=== PATIENT | female | born 1960 | race Caucasian/White ===

== ENCOUNTER 2017-02-11 00:51 | Inpatient (IN) | payer MEDICARE, MEDICAID ==
--- NOTE | 2017-02-11 01:51 | ED Physician Chart ---
Chief Complaint/HPI - Patient Information Date Seen:: 02/11/17 Time Seen:: 01:30 Chief Complaint:: Fever for one day. History of Present Illness:: Brought in by ambulance from nursing facility for the above reason. Pt states that she has had intermittent localized sharp mid lower abdominal pain for one day. Pain can be worsened with eating. No N/V/D. Last BM yesterday that was normal in color/consistency. No hematochezia or melena. Pt denies any sorethroat , nasal congestion or cough. No vaginal bleeding or discharge. No dysuria, urgency, or frequency with urination. No vaginal bleeding or discharge. H & P are limited because pt has h/o mental disability and is not fully cooperative. Allergies:: Allergies Allergy/AdvReac Type Severity Reaction Status Date / Time No Known Allergies Allergy Verified 05/31/16 14:51 Vitals:: Vital Signs - 8 hr 02/11/17 01:00 Temp 98.8 F HR 110 RR 20 BP 120/58 O2 Sat % 98 Historian:: Patient, Medical Records (from transferring facility.) Family MD/PCP:: Dr. Alvarez LMP:: Postmenopausal. Review:: Nurse's Note Reviewed, Transfer documents Reviewed Review of Systems - Review of Systems General/Constitutional: Fever, No chills, No weight loss, Weakness (chronic lower extremity weakness. Pt has been wheelchair bound), No diaphoresis, No edema, No loss of appetite Skin: No skin lesions, No rash, No bruising Head: No headache, No light-headedness Eyes: No loss of vision, No pain, No diplopia ENT: No earache, No nasal drainage, No sore throat, No tinnitus Neck: No neck pain, No swelling, No thyromegaly, No stiffness, No mass noted Cardio Vascular: No chest pain, No palpitations, No edema Pulmonary: No SOB, No cough, No wheezing GI: No nausea, No vomiting, No diarrhea, Pain G/U: No dysuria, No frequency, No hematuria Hammer Setter: No vaginal discharge, No abnormal vaginal bleed Musculoskeletal: No bone or joint pain, No back pain, No muscle pain Endocrine: No polyuria, No polydipsia Psychiatric: Prior psych history, No depression, No anxiety, No suicidal ideation, No homicidal ideation, No auditory hallucination, No visual hallucination Hematopoietic: No bruising, No lymphadenopathy Allergic/Immuno: No urticaria, No angioedema Neurological: No syncope, No focal symptoms, No weakness, No paresthesia, No headache, No seizure, No dizziness, No confusion, No vertigo Past Medical History - Past Medical History Past Medical History: HTN, DM, Dyslipidemia, Dementia, Other (Chronic anemia) Social History: Non Smoker, No Alcohol, No Drug Use, Single, Care Facility Employment:: on disability. Surgical History: Cholecystectomy Psychiatricy History: Dementia Medication: Reviewed Family Medical History - Family Member Mother History Unknown: Yes Physical Exam - Physical Examination General/Constitutional: Awake, Well-developed, well-nourished, Alert, No distress Other Gen/Cons comments:: Breathes comfortably, speaks clearly, and interacts appropriately. Pt is alert and is able to answer most questions I ask. Head: Atraumatic Eyes: Lids, conjuctiva normal, PERRL, EOMI Skin: Nl inspection, No rash, No skin lesions, No ecchymosis, No lymphadenopathy ENMT: External ears, nose nl, TM canals nl, Nasal exam nl, Oropharynx nl Other ENMT comments:: Mucous membrane is slightly dry. Neck: Nontender, Full ROM w/o pain, No JVD, No nuchal rigidity, No mass, No stridor Respiratory: Nl effort/Exclusion, Clear to Auscultation, No Wheeze/Rhonchi/Rales Other Cardio Vascular comments:: Regular rhythm with mild tachycardia. VR 110 GI: No organomegaly, No hernia, Normal BS's, No mass/bruits, No McBurney tenderness Other GI comments:: Abdomen is obese but soft. Tenderness at mid lower region. No R/G. A well healed diagonal surgical scar noticed in RUQ. Rectal exam: deferred per pt's request. : No CVA tenderness Other comments:: Pelvic exam: deferred per pt's request. Extremities: No tenderness or effusion, No edema Other Extremities comments:: contactures noticed in all 4 extremities, especially in LUE. Neuro/Psych: Alert/oriented (oriented x 3), Mood normal Other Neuro/Psych comments:: Spontaneous movements noticed in all 4 extremities. Pt has contractures noticed in all 4 extremites. Pt does not fully cooperate for full neurological exam. Labs/Radiology/EKG Results - Lab Results Results: Laboratory Tests 08/21/17 08/21/17 08/21/17 01:40 01:40 01:40 WBC 12.2 H D RBC 3.99 Hgb 11.2 L Hct 33.1 L D MCV 82.9 MCH 28.0 MCHC Differential 33.7 RDW 13.8 Plt Count 288 D MPV 8.2 Neutrophils % 77.1 Lymphocytes % 13.0 L Monocytes % 8.6 Eosinophils % 0.7 Basophils % 0.6 PT 10.4 INR 1.00 PTT (Actin FS) 24.2 L Sodium 133 L Potassium 4.2 Chloride 99 Carbon Dioxide 25.5 Anion Gap 12.7 BUN 23 Creatinine 0.7 Est GFR ( Amer) > 60.0 Est GFR (Non-Af Amer) > 60.0 BUN/Creatinine Ratio 32.9 Glucose 134 H Whole Bld Lactic Acid Calcium 10.5 H Total Bilirubin 0.4 AST 27 ALT 21 Alkaline Phosphatase 65 Creatine Kinase 43 Troponin I Total Protein 7.4 Albumin 4.0 Globulin 3.4 Albumin/Globulin Ratio 1.2 Amylase 40 Lipase 63 Urine Source Urine Color Urine Clarity Urine pH Ur Specific [place] Urine Protein Urine Glucose (UA) Urine Ketones Urine Blood Urine Nitrate Urine Bilirubin Urine Urobilinogen Ur Leukocyte Esterase Urine RBC Urine WBC Ur Epithelial Cells Urine Bacteria Valproic Acid 02/11/17 02/11/17 02/11/17 01:40 01:40 02:00 WBC RBC Hgb Hct MCV MCH MCHC Differential RDW Plt Count MPV Neutrophils % Lymphocytes % Monocytes % Eosinophils % Basophils % PT INR PTT (Actin FS) Sodium Potassium Chloride Carbon Dioxide Anion Gap BUN Creatinine Est GFR ( Amer) Est GFR (Non-Af Amer) BUN/Creatinine Ratio Glucose Whole Bld Lactic Acid 1.56 Calcium Total Bilirubin AST ALT Alkaline Phosphatase Creatine Kinase Troponin I < 0.01 L Total Protein Albumin Globulin Albumin/Globulin Ratio Amylase Lipase Urine Source Urine Color Urine Clarity Urine pH Ur Specific [place] Urine Protein Urine Glucose (UA) Urine Ketones Urine Blood Urine Nitrate Urine Bilirubin Urine Urobilinogen Ur Leukocyte Esterase Urine RBC Urine WBC Ur Epithelial Cells Urine Bacteria Valproic Acid 60.2 02/11/17 02:10 WBC RBC Hgb Hct MCV MCH MCHC Differential RDW Plt Count MPV Neutrophils % Lymphocytes % Monocytes % Eosinophils % Basophils % PT INR PTT (Actin FS) Sodium Potassium Chloride Carbon Dioxide Anion Gap BUN Creatinine Est GFR ( Amer) Est GFR (Non-Af Amer) BUN/Creatinine Ratio Glucose Whole Bld Lactic Acid Calcium Total Bilirubin AST ALT Alkaline Phosphatase Creatine Kinase Troponin I Total Protein Albumin Globulin Albumin/Globulin Ratio Amylase Lipase Urine Source CATH Urine Color YELLOW Urine Clarity CLOUDY H Urine pH 5.5 Ur Specific [place] 1.010 Urine Protein NEGATIVE Urine Glucose (UA) NEGATIVE Urine Ketones NEGATIVE Urine Blood SMALL H Urine Nitrate POSITIVE H Urine Bilirubin NEGATIVE Urine Urobilinogen 0.2 Ur Leukocyte Esterase LARGE H Urine RBC 2-5 Urine WBC 50-100 H Ur Epithelial Cells MODERATE Urine Bacteria MODERATE Valproic Acid - Radiology Results Results: PCXR: Based on my interpratation, cardiomegaly; otherwise, NAD. Official report is pending. CT of abdomen and pelvis without contrast: Prominent common bile duct, unchanged likely related to prior cholecystectomy. Nonspecific perinenphric soft tisssue stranding. No renal or ureteral calcification. No hydronephrosis. No bladder calcification. No free fluid. No free air. Motion artifact limiting evaluation. No CT evidence for appendicitis. Unremarkable bowel gas pattern. Moderate retained stool. Small left inguinal hernia containing fat. Mild dependent atelectasis. Official report per Dr. Luda Mendes, radiologist. - EKG Interpretations EKG Time:: 01:50 Rate & Rhythm: Sinus tachycardia with VR 111 Comments:: No acute ischemic changes. ED Septic Shock - . Is Septic Shock (SBP<90, OR Lactate>4 mmol\L) present?: No - <6hrs of presentation: Vital Signs: Vital Signs - 8 hr 02/11/17 01:00 Temp 98.8 F HR 110 RR 20 BP 120/58 O2 Sat % 98 Reassessment (Disposition) - Reassessment Reassessment:: 0440 Pt has been repeatedly evaluated. Pt has been pain free and has been resting comfortably. Remaining lab results and CT report just became available. EKG, lab and radiological findings have been reviewed with pt. Management plan has been discussed. Dr. Patel is to be contacted. 0604 Pt remains pain free and stable. Case was discussed with Dr. Patel with pertinent H & P, EKG, lab, and radiological findings reviewed. He concurred with present management. Pt is to be admitted to [facility] under his care. Reassessment Condition:: Improved - Diagnosis Diagnosis:: Febrile illness due to acute cystitis/urinary tract infection. Stable and improved. Transient abdominal pain of unknown etiology, resolved and currently asymptomatic. Mild dehydration. Diabetes mellitus, stable. HTN, stable. - Patient Disposition Admitted to:: Med/Surg Admitting Medical Physician:: Jerome Patel Time:: 06:05 Condition at Disposition:: Stable, Improved
[2017-02-11 01:55] LABS: % BASOPHILS 0.6 % (0.0-2.0); % EOSINOPHILS 0.7 % (0.0-5.0); % MONOCYTES 8.6 % (2.0-10.0); % NEUTROPHILS 77.1 % (40.0-80.0); HEMOGLOBIN 11.2 gm/dL (11.7-15.5); MEAN CELL VOLUME 82.9 fl (81-100); MEAN CORPUSCULAR HGB CONC 33.7 pg (28.0-36.0); MEAN PLATELET VOLUME 8.2 fl; NEUTROPHILE ABSOLUTE 9.4 Th/cmm (1.8-8.0); RED BLOOD COUNT 3.99 Mil/cmm (3.80-5.10); RED CELL DISTRIBUTION WIDTH 13.8 % (11.5-20.0)
[2017-02-11 02:00] LABS: WHITE BLOOD COUNT 12.2 Th/cmm (4.8-10.8)
[2017-02-11 02:01] LABS: HEMATOCRIT 33.1 % (35.0-45.0); PLATELET COUNT 288 Th/cmm (150-400)
[2017-02-11 02:04] LABS: PROTHROMBIN TIME (TEST) 10.4 SECONDS (9.5-11.5)
[2017-02-11 02:05] LABS: ALB/GLOB RATIO 1.2 (1.0-1.8); ALKALINE PHOSPHATASE 65 U/L (34-104); AMYLASE SERUM 40 U/L (29-103); ANION GAP 12.7 (7.0-16.0); BILIRUBIN,TOTAL 0.4 mg/dL (0.3-1.0); BUN - UREA NITROGEN 23 mg/dL (7-25); BUN/CREATININE RATIO 32.9; CALCIUM SERUM 10.5 mg/dL (8.6-10.3); CARBON DIOXIDE 25.5 mEq/L (21.0-31.0); CHLORIDE 99 mEq/L (98-107); CREATININE - SERUM 0.7 mg/dL (0.6-1.2); GLUCOSE 134 mg/dL (70-105); LIPASE 63 U/L (11-82); POTASSIUM SERUM 4.2 mEq/L (3.5-5.1); SGOT 27 U/L (13-39); SGPT/ALT 21 U/L (7-52); SODIUM SERUM 133 mEq/L (136-145)
[2017-02-11 02:15] LABS: URINE BILIRUBIN NEGATIVE (NEGATIVE); URINE BLOOD SMALL (NEGATIVE); URINE GLUCOSE (UA) NEGATIVE (NEGATIVE); URINE KETONE NEGATIVE (NEGATIVE); URINE PH 5.5 (4.6 - 8.0); URINE PROTEIN NEGATIVE (NEGATIVE); URINE UROBILINOGEN 0.2 E.U./dL (0.2 - 1.0)
[2017-02-11] MEDS ORDERED: Sodium Chloride 0.9% 1,000 ML IV ONE (02:15)
[2017-02-11 02:23] LABS: URINE COLOR YELLOW
[2017-02-11 02:24] LABS: URINE BACTERIA MODERATE /hpf (NONE SEEN); URINE EPITHELIAL CELLS MODERATE /lpf (FEW); URINE WBC 50-100 /hpf (0-5)
[2017-02-11] MEDS ORDERED: Levofloxacin 500mg/100mL 500 MG/100 ML BAG IV ONE ×2 (04:46→04:54)
[2017-02-11] MEDS ORDERED: Fleet Enema 135 mL RC PRN (06:18)
[2017-02-11] MEDS ORDERED: GLUCAGON HCl 1 MG KIT IM PRN (06:18)
[2017-02-11] MEDS ORDERED: Magnesium Hydroxide (MOM) 30 mL UDC PO PRN (06:18)
--- NOTE | 2017-02-11 08:11 | Diagnostic Imaging Report ---
CT scan abdomen and pelvis without intravenous contrast HISTORY: Pain Total DLP equals 611 CTDI equals 11.8 Axial sections were obtained from the xiphoid process down to the pubic symphysis. The liver exhibits a normal size and contour. No focal lesions. The spleen appears normal. No abnormality seen in the region of the pancreas. Surgical clips are seen in the zi hepatis region consistent with prior cholecystectomy. The adrenal glands appear normal. No significant focal renal lesions. No hydronephrosis. The exam of the pelvis demonstrates preservation of normal fat planes. No abnormal soft tissue masses or abnormal fluid collections. There is a small fat-containing left inguinal hernia. IMPRESSION: 1. Somewhat limited exam due to patient motion artifact 2. No definite acute abnormalities 3. Small fat-containing left inguinal hernia 4. Findings of a prior cholecystectomy
--- NOTE | 2017-02-11 08:14 | Diagnostic Imaging Report ---
Portable chest x-ray History: Fever Allowing for portable technique the heart size is normal. No focal pulmonary parenchymal processes. No hilar or mediastinal abnormalities. Small calcific density noted in the soft tissues adjacent to the lateral aspect of the right humeral head consistent with calcific tendinitis. Impression: 1. No acute abnormalities 2. Small calcification within the soft tissues adjacent to the lateral aspect of the right humeral head consistent with calcific tendinitis.
[2017-02-11] MEDS: Multivitamin w/ Minerals Tab PO SCH (09:16)
[2017-02-11] MEDS: Ferrous Sulfate 325 MG TAB PO SCH ×2 (09:16→17:20)
[2017-02-11] MEDS: Aspirin 81mg Chewable Tab PO SCH (09:19)
[2017-02-11] MEDS: Sodium Chloride 0.9% 1,000 ML IV SCH (10:50)
[2017-02-11] MEDS: Ciprofloxacin 200mg Premix PB 200 MG/100 ML BAG IV SCH ×2 (10:53→21:11)
--- NOTE | 2017-02-11 10:58 | History & Physical ---
ADMIT DATE: 02/11/2017 CHIEF COMPLAINT: Fevers x 1 day and suprapubic abdominal pain. HISTORY OF PRESENT ILLNESS: This is a 56-year-old lady who was transferred from [facility] for the above-mentioned complaint. The patient has a history of mild mental retardation, quadriplegia, essential hypertension, type 2 diabetes, who was brought into the ER, given fevers and also abdominal pain, which was mostly localized on the suprapubic area. The patient denies any diarrhea, any nausea, vomiting, but she does complain of some burning upon urination. Upon admission, pertinent findings include a white count of 12.2, sodium of 133, and UA consistent with a UTI. The patient has been admitted to the medical floor for management and care. PAST MEDICAL HISTORY: As noted above. Dementia, dyslipidemia, chronic anemia. PAST SURGICAL HISTORY: Status post cholecystectomy. FAMILY HISTORY: Likely noncontributory. SOCIAL HISTORY: No tobacco, ETOH or illicit drug usage. Lives at the [facility]. ALLERGIES: NKDA. OUTPATIENT MEDICATIONS: Acetaminophen 650 q. 4 p.r.n. for pain or fever, aspirin 81 every day, benazepril 10 every day, Dulcolax 10 q. 96 hours p.r.n. for moderate constipation, vitamin D3 1000 units at bedtime, Depakote ER 500 mg q.12, docusate sodium 200 mg every day, iron sulfate 325 b.i.d., Fleet enema q. 96 hours p.r.n. for severe constipation, gabapentin 100 mg at bedtime, Lopid 600 mg b.i.d., glipizide 5 mg every day, glucagon p.r.n., ibuprofen 400 mg at bedtime, insulin sliding scale, milk of magnesia p.r.n., q. 72 hours, Glucophage 1000 mg b.i.d., Cytotec 100 mcg every day, multivitamins every day, olanzapine 7.5 q.p.m., Dyazide 37.5/25 every day. REVIEW OF SYSTEMS: A good review of systems was not able to be done given patient's condition, but she was able tell me that she has had fevers for about a day or so. CARDIAC: No chest pain. LUNGS: She denies any cough, any phlegm production, any shortness of breath. GASTROINTESTINAL: Please refer to HPI. She denies any nausea or vomiting, any diarrhea, any constipation, as noted above suprapubic abdominal pain. GENITOURINARY: Dysuria. Denies any hematuria. NEUROLOGIC: No changes in vision. No headaches. PHYSICAL EXAMINATION: VITAL SIGNS: Temperature 97.8, pulse 112, respirations 20, blood pressure 131/72, satting 95% on room air. GENERAL: Well nourished, mildly developed, mentally delayed female. She is awake and able to answer simple questions. CARDIOVASCULAR: Regular rate and rhythm without any murmurs. LUNGS: Clear to auscultation. Decreased at the bases. ABDOMEN: Somewhat distended. There is some tenderness to palpation on the periumbilical area and suprapubic area with no rebound or peritoneal signs, no organomegaly noted. There is normoactive bowel sounds. EXTREMITIES: Lower extremities: There is no pedal edema. LABORATORY DATA: White count 12.2, H and H 11/33, sodium 133. Otherwise chemistry was within normal limits. Glucose 134, lactic acid 1.56, calcium 10.5. LFTs were within normal limits. UA shows small blood, positive for nitrites, large leukocyte esterase with large.WBC: 50-100 DIAGNOSTICS: CT ABD/PELVIS: PROMINENT BILE DUCT-PRIOR JOY, SMALL LEFT INGUINAL HERNIA, MILD DEPENDENT ATELECTASIS. CXR: NO ACUTE ABNORMALITIES ASSESMENT: 1) FEVERS R/O SEPSIS-FOLLOW C/S 2) UTI-FOLLOW UC/S 3) LEUKOCYTOSIS-MONITOR 4) HX OF MR/CP/QUADRIPLEGIA 5) HX OF HTN 6) HX OF DM-2 7) HX OF DEMENTIA PLAN: ADMIT TPO MS FOR SUPPORTIVE CARE AND MGT PT HAS BEEN PLACED ON IV ABXS, IVF. FOLLOW PANCULTURES WILL KEEP PT ON HER OTHER MEDS SCHEDULED FOLLOW LABS [facility]# [id number] [facility]
[2017-02-11] MEDS: INSULIN ASPART SLIDING SCALE 100 UNITS/ML UNIT SUBQ SCH ×4 (12:03→21:19)
[2017-02-12] MEDS: Sodium Chloride 0.9% 1,000 ML IV SCH ×2 (02:35→17:40)
[2017-02-12 06:31] LABS: HEMATOCRIT 30.3 % (35.0-45.0); MEAN CELL VOLUME 83.2 fl (81-100); MEAN CORPUSCULAR HEMOGLOBIN 27.4 pg (27.0-31.0); MEAN PLATELET VOLUME 7.4 fl; PLATELET COUNT 260 Th/cmm (150-400); RED BLOOD COUNT 3.65 Mil/cmm (3.80-5.10); RED CELL DISTRIBUTION WIDTH 13.6 % (11.5-20.0)
[2017-02-12 06:33] LABS: WHITE BLOOD COUNT 6.4 Th/cmm (4.8-10.8)
[2017-02-12 06:54] LABS: ANION GAP 11.1 (7.0-16.0); BUN - UREA NITROGEN 14 mg/dL (7-25); CARBON DIOXIDE 25.8 mEq/L (21.0-31.0); CHLORIDE 104 mEq/L (98-107); CREATININE - SERUM 0.5 mg/dL (0.6-1.2); GLUCOSE 119 mg/dL (70-105); MAGNESIUM 1.8 mg/dL (1.9-2.7); POTASSIUM SERUM 3.9 mEq/L (3.5-5.1); SODIUM SERUM 137 mEq/L (136-145)
[2017-02-12] MEDS: INSULIN ASPART SLIDING SCALE 100 UNITS/ML UNIT SUBQ SCH ×3 (07:13→17:39)
[2017-02-12 07:30] LABS: BAND NEUTROPHILE 1 % (0-10); EOSINOPHIL 1 % (0-5); NEUTROPHILS 58 % (40-80); PLATELET ESTIMATE ADEQUATE (NORMAL); PLATELET MORPHOLOGY NORMAL (NORMAL); TOTAL CELLS COUNTED 100
[2017-02-12] MEDS: Multivitamin w/ Minerals Tab PO SCH (08:58)
[2017-02-12] MEDS: Ferrous Sulfate 325 MG TAB PO SCH ×2 (08:59→16:49)
[2017-02-12] MEDS: Aspirin 81mg Chewable Tab PO SCH (08:59)
[2017-02-12] MEDS: Ciprofloxacin 200mg Premix PB 200 MG/100 ML BAG IV SCH ×2 (09:00→22:02)
--- NOTE | 2017-02-12 21:05 | Admit Criteria Form ---
Admit Criteria Forms - Admit Criteria Diagnosis: URINARY COMPLICATIONS Clinical Indications for Inpatient Care (Place 'X' for any and all applicable criteria): Ongoing inpatient care may be indicated for urinary complications with ANY ONE of the following: [X ]I. Urinary tract infection requiring inpatient care as indicated by ANY ONE of the following(8)(19)(20): [ ]a) Severe symptoms (eg, high fever, severe pain) [ ]b) Vomiting or dehydration requiring ongoing inpatient care [X ]c) IV antibiotic needs that cannot be managed at lower level of care [ ]d) Hemodynamic instability [ ]e) Obstruction of collecting system by stone or tumor [ ]II. Urinary retention requiring drainage or surgery (3)(4)(5)(17)(18) [ ]III. Renal failure (Use Renal Failure Criteria for further information.) [ ]IV. Oliguria(30) [ ]V. Post obstructive diuresis requiring close monitoring of urine output and intravenous compensation for excessive fluid losses(33) Extended stay beyond goal length of stay for primary condition may be needed until ALL of the following are present(3)(4)(5)(8): [ ]a) Renal function (creatinine) at baseline, or daily decreases in creatinine consistent with renal function return [ ]b) Voiding adequately or with urinary catheter or percutaneous suprapubic tube and management regimen in place that is performable at lower level of care. [ ]c) Urine output adequate [ ]d) Fever absent or resolving [ ]e) Infection absent or treatable at next level of care The original [employer] content created by [employer] has been revised. The portions of the content which have been revised are identified through the use of italic text or in bold, and [facility] has neither reviewed nor approved the modified material. All other unmodified content is copyright [employer] [employer] Please see references footnoted in the original [facility] [employer] edition 2016 Admit Criteria Met?: Yes
[2017-02-13] MEDS: INSULIN ASPART SLIDING SCALE 100 UNITS/ML UNIT SUBQ SCH ×3 (02:41→12:09)
[2017-02-13] MEDS: Aspirin 81mg Chewable Tab PO SCH (09:02)
[2017-02-13] MEDS: Ferrous Sulfate 325 MG TAB PO SCH (09:03)
[2017-02-13] MEDS: Multivitamin w/ Minerals Tab PO SCH (09:04)
[2017-02-13] MEDS: Ciprofloxacin 200mg Premix PB 200 MG/100 ML BAG IV SCH (09:08)
[2017-02-13] MEDS ORDERED: Hydrocodone/APAP 5mg/325mg Tab PO ONE (09:47)
[2017-02-13 09:51] LABS: % BASOPHILS 0.2 % (0.0-2.0); % EOSINOPHILS 3.4 % (0.0-5.0); % LYMPHOCYTES 30.9 % (20.0-50.0); % MONOCYTES 11.2 % (2.0-10.0); % NEUTROPHILS 54.3 % (40.0-80.0); HEMATOCRIT 32.4 % (35.0-45.0); HEMOGLOBIN 10.7 gm/dL (11.7-15.5); MEAN CELL VOLUME 82.9 fl (81-100); MEAN CORPUSCULAR HEMOGLOBIN 27.4 pg (27.0-31.0); MEAN PLATELET VOLUME 7.7 fl; NEUTROPHILE ABSOLUTE 3.5 Th/cmm (1.8-8.0); PLATELET COUNT 280 Th/cmm (150-400); RED CELL DISTRIBUTION WIDTH 13.5 % (11.5-20.0); WHITE BLOOD COUNT 6.3 Th/cmm (4.8-10.8)
[2017-02-13] MEDS ORDERED: Fleet Enema 135 mL RC ONE (10:00)
[2017-02-13 10:32] LABS: ANION GAP 13.4 (7.0-16.0); BUN - UREA NITROGEN 19 mg/dL (7-25); BUN/CREATININE RATIO 31.7; CALCIUM SERUM 10.5 mg/dL (8.6-10.3); CARBON DIOXIDE 21.9 mEq/L (21.0-31.0); CHLORIDE 106 mEq/L (98-107); CREATININE - SERUM 0.6 mg/dL (0.6-1.2); GLUCOSE 177 mg/dL (70-105); MAGNESIUM 1.7 mg/dL (1.9-2.7); POTASSIUM SERUM 4.3 mEq/L (3.5-5.1); SODIUM SERUM 137 mEq/L (136-145)
[2017-02-13] MEDS: Sodium Chloride 0.9% 1,000 ML IV SCH (11:11)
--- NOTE | 2017-02-13 11:38 | Discharge Summary ---
DATE OF DISCHARGE: 02/13/2017 ADMITTING DIAGNOSES: 1. Fever, rule out sepsis. 2. Urinary tract infection. 3. Leukocytosis. SECONDARY DIAGNOSES: 1. History of mental retardation. 2. Cerebral palsy. 3. Quadriplegia. 4. History of essential hypertension. 5. History of type 2 diabetes. 6. History of dementia. DISCHARGE DIAGNOSES: 1. Fevers, resolved. 2. Urinary tract infection, gram-negative rods, clinically improved. 3. Leukocytosis, resolved. CONSULTANTS: No consultants were used during this admission. MAJOR PROCEDURES: There was an abdominal and pelvis CT done 02/11/2017, showin. somewhat of a limited exam due to patient's motion artifact. 2. No definitive acute abnormalities. 3. Small fat containing left inguinal hernia. 4. Findings of prior cholecystectomy. DISCHARGE MEDICATIONS: Tylenol 650 q.4 p.r.n. for pain, aspirin 81 every day, Lotensin 2.5 every day, Dulcolax 10 mg q.96 hours p.r.n. for constipation, vitamin D3 1500 international units at bedtime, Cipro 250 b.i.d. x 10 days, Depakote ER 500 mg q.12, docusate sodium 200 mg every day, iron sulfate 325 b.i.d., gabapentin 100 mg at bedtime, Lopid 600 mg b.i.d., glipizide 5 mg every day, ibuprofen 400 mg at bedtime p.r.n. for pain, insulin sliding scale, milk of magnesia 30 mL q.72 hours p.r.n. for constipation, Glucophage 1000 mg b.i.d., Cytotec 100 mg every day, Zyprexa 7.5 q.p.m. Fleet enema 135 mL q.96 hours for severe constipation, and Dyazide 1 tab every day. BRIEF HOSPITAL COURSE: A pounds a 56-year-old female who presented from [facility] with 1-day history of fevers and suprapubic abdominal pain. Pertinent findings at the ER included a white count of 12.2 and a UA consistent with a UTI. She was admitted to medical/surgical floor, placed on IV fluids and IV antibiotics, namely Cipro and supportive care. She was kept on her medications as scheduled. From admission on she remained afebrile at times tachy, but eventually having regular rate and rhythm. She did complain of some right-sided nonspecific abdominal pain, which might be related to constipation, which chronically she suffers from. Her white count did improve to a level of 6.4 x 02/12/2017 and her cultures came back with gram-negative rods. Final report with sensitivities pending. At this point, given that her clinical picture and her labs have improved, I will discharge her on Cipro p.o. and we will changes once the final results become available. DISPOSITION: The patient will be transferred later on today to [facility] under the care of Dr. Alvarez. JOB# [id number] BI
== END 2017-02-13 14:49 | disposition home or self-care (01) | DRG 689 ==
LOC: ER 00:51 → MSI 06:16
PROVIDERS: ADMIT Internal Medicine; ATTEND Internal Medicine
DX: N39.0 Urinary tract infection, site not specified (principal); G82.50 Quadriplegia, unspecified; I10 Essential (primary) hypertension; E11.9 Type 2 diabetes mellitus without complications; F03.90 Unspecified dementia, unspecified severity, without behavioral disturbance, psychotic disturbance, mood disturbance, and anxiety; B96.89 Other specified bacterial agents as the cause of diseases classified elsewhere; D64.9 Anemia, unspecified; F70 Mild intellectual disabilities; E78.5 Hyperlipidemia, unspecified; E86.0 Dehydration; K59.00 Constipation, unspecified; Z90.49 Acquired absence of other specified parts of digestive tract
CPT/HCPCS: 36415-UA; 71010-TC; 80048-TC; 80053-TC; 80164-TC; 81001-TC; 82150-TC; 82550-TC; 82948-90; 83605; 83690-TC; 83735-TC; 84484-TC; 85007-TC; 85025-TC; 85027-TC; 85610-TC; 87086-90; 93005; 96375; J0744; J1815; J1956; J2270; J7030; Z7610

== ENCOUNTER 2018-02-12 18:08 | Inpatient (IN) | payer MEDICARE, MEDICAID ==
--- NOTE | 2018-02-12 18:44 | ED Physician Chart ---
ED Chief Complaint/HPI - Patient Information Date Seen:: 02/12/18 Time Seen:: 18:30 Chief Complaint:: Fever History of Present Illness:: onset x 2 days of fever, Abd. Pain, and nausea; no report of trauma, H/As, S/T, neck pain, C/P, SOB, cough, A/V/D/C, chills, or urinary s/s Allergies:: Allergies Allergy/AdvReac Type Severity Reaction Status Date / Time No Known Allergies Allergy Verified 02/12/18 18:12 Vitals:: Vital Signs - 8 hr 02/12/18 18:27 Temp 98.2 F HR 111 RR 18 BP 109/52 O2 Sat % 97 Historian:: Patient, EMS Review:: Nurse's Note Reviewed, Old Chart Reviewed, EMS run form Reviewed <Esvin Bennett - Last Filed: 02/12/18 18:48> - Patient Information Allergies:: Allergies Allergy/AdvReac Type Severity Reaction Status Date / Time No Known Allergies Allergy Verified 02/12/18 18:12 Vitals:: Vital Signs - 8 hr 02/12/18 02/12/18 02/12/18 18:27 18:53 20:08 Temp 98.2 F 98.2 F 98.6 F HR 111 115 116 RR 18 20 21 BP 109/52 109/52 111/62 O2 Sat % 97 99 98 <Lexy Martínez - Last Filed: 02/12/18 22:25> ED Review of Systems - Review of Systems General/Constitutional: Fever, No chills, No weight loss, Weakness, No diaphoresis, No edema, No loss of appetite Skin: No skin lesions, No rash, No bruising Head: No headache, No light-headedness Eyes: No loss of vision, No pain, No diplopia ENT: No earache, No nasal drainage, No sore throat, No tinnitus Neck: No neck pain, No swelling, No thyromegaly, No stiffness, No mass noted Cardio Vascular: No chest pain, No palpitations, No PND, No orthopnea, No edema Pulmonary: No SOB, No cough, No sputum, No wheezing GI: No nausea, No vomiting, No diarrhea, No pain, No melena, No hematochezia, No constipation, No hematemesis G/U: No dysuria, No frequency, No hematuria, No nacturia Adjudication Specialist: No vaginal discharge, No abnormal vaginal bleed, No contraction Musculoskeletal: No bone or joint pain, No back pain, No muscle pain Endocrine: No polyuria, No polydipsia Psychiatric: No prior psych history, No depression, No anxiety, No suicidal ideation, No homicidal ideation, No auditory hallucination, No visual hallucination Hematopoietic: No bruising, No lymphadenopathy Allergic/Immuno: No urticaria, No angioedema Neurological: No syncope, No focal symptoms, Weakness, No paresthesia, No headache, No seizure, No dizziness, Confusion, No vertigo <SabrinaEsvin - Last Filed: 02/12/18 18:48> ED Past Medical History - Past Medical History Obtainable: Yes Past Medical History: HTN, DM, PUD/GERD, Dementia Family History: Diabetes Melitus, HTN Social History: Non Smoker, No Alcohol, No Drug Use, Single, Care Facility Surgical History: Cholecystectomy Psychiatricy History: Dementia Medication: Reviewed <VeroelyEsvin - Last Filed: 02/12/18 18:48> Family Medical History - Family Member Mother History Unknown: Yes <Esvin Bennett - Last Filed: 02/12/18 18:48> ED Physical Exam - Physical Examination General/Constitutional: Awake, Well-developed, well-nourished, Alert, No distress, GCS 15, Non-toxic appearing, Ambulatory Head: Atraumatic Eyes: Lids, conjuctiva normal, PERRL, EOMI Skin: Nl inspection, No rash, No skin lesions, No ecchymosis, Well hydrated, No lymphadenopathy ENMT: External ears, nose nl, TM canals nl, Nasal exam nl, Lips, teeth, gums nl , Oropharynx nl, Tonsils nl Neck: Nontender, Full ROM w/o pain, No JVD, No nuchal rigidity, No bruit, No mass, No stridor Other Neck comments:: supple; no meningeal signs; no cervical tenderness Respiratory: Nl effort/Exclusion, Clear to Auscultation, No Wheeze/Rhonchi/Rales Cardio Vascular: RRR, No murmur, gallop, rubs, NL S1 S2, Carotid/Femoral/Distal pulses equal bilaterally GI: No tenderness/rebounding/guarding, No organomegaly, No hernia, Normal BS's, Nondistended, No mass/bruits, No McBurney tenderness Other GI comments:: no pulsatile masses : No CVA tenderness Extremities: No tenderness or effusion, Full ROM, normal strength in all extremities, No edema, Normal digits & nails Neuro/Psych: Alert/oriented, DTR's symmetric, Normal sensory exam, Normal motor strength, Judgement/insight normal, Mood normal, Normal gait, No focal deficits Misc: Normal back, No paraspinal tenderness <Esvin Bennett - Last Filed: 02/12/18 18:48> ED Labs/Radiology/EKG Results - Lab Results Results: Laboratory Tests 02/12/18 02/12/18 02/12/18 19:20 19:20 19:20 WBC 25.9 H* RBC 3.99 Hgb 11.5 L Hct 34.1 L MCV 85.5 MCH 28.7 MCHC Differential 33.6 RDW 13.5 Plt Count 429 H MPV 7.7 Add Manual Diff YES Band Neutrophils % 7 Neutrophils (Manual) 79 Lymphocytes 11 L Monocytes 3 PT INR PTT (Actin FS) Sodium 127 L Potassium 4.2 Chloride 91 L Carbon Dioxide 21.6 Anion Gap 18.6 H BUN 28 H Creatinine 1.2 Est GFR ( Amer) 59.8 Est GFR (Non-Af Amer) 49.4 BUN/Creatinine Ratio 23.3 Glucose 391 H Hemoglobin A1c % Whole Bld Lactic Acid Calcium 11.0 H Total Bilirubin 0.5 AST 21 ALT 22 Alkaline Phosphatase 106 H Creatine Kinase 58 Troponin I B-Natriuretic Peptide 55.8 Total Protein 7.9 Albumin 4.4 Globulin 3.5 Albumin/Globulin Ratio 1.3 Triglycerides 280 H Cholesterol 238 H LDL Cholesterol Direct 138 HDL Cholesterol 40 Amylase Lipase Serum , Qual Urine Source Urine Color Urine Clarity Urine pH Ur Specific [place] Urine Protein Urine Glucose (UA) Urine Ketones Urine Blood Urine Nitrate Urine Bilirubin Urine Urobilinogen Ur Leukocyte Esterase Urine RBC Urine WBC Ur Epithelial Cells Urine Bacteria 02/12/18 02/12/18 02/12/18 19:20 19:20 19:20 WBC RBC Hgb Hct MCV MCH MCHC Differential RDW Plt Count MPV Add Manual Diff Band Neutrophils % Neutrophils (Manual) Lymphocytes Monocytes PT 10.7 INR 1.03 PTT (Actin FS) 24.1 L Sodium Potassium Chloride Carbon Dioxide Anion Gap BUN Creatinine Est GFR ( Amer) Est GFR (Non-Af Amer) BUN/Creatinine Ratio Glucose Hemoglobin A1c % Whole Bld Lactic Acid Calcium Total Bilirubin AST ALT Alkaline Phosphatase Creatine Kinase Troponin I 0.02 B-Natriuretic Peptide Total Protein Albumin Globulin Albumin/Globulin Ratio Triglycerides Cholesterol LDL Cholesterol Direct HDL Cholesterol Amylase 27 L Lipase 51 Serum , Qual Urine Source Urine Color Urine Clarity Urine pH Ur Specific [place] Urine Protein Urine Glucose (UA) Urine Ketones Urine Blood Urine Nitrate Urine Bilirubin Urine Urobilinogen Ur Leukocyte Esterase Urine RBC Urine WBC Ur Epithelial Cells Urine Bacteria 02/12/18 02/12/18 02/12/18 19:20 19:20 19:20 WBC RBC Hgb Hct MCV MCH MCHC Differential RDW Plt Count MPV Add Manual Diff Band Neutrophils % Neutrophils (Manual) Lymphocytes Monocytes PT INR PTT (Actin FS) Sodium Potassium Chloride Carbon Dioxide Anion Gap BUN Creatinine Est GFR ( Amer) Est GFR (Non-Af Amer) BUN/Creatinine Ratio Glucose Hemoglobin A1c % 6.0 Whole Bld Lactic Acid 3.13 H* Calcium Total Bilirubin AST ALT Alkaline Phosphatase Creatine Kinase Troponin I B-Natriuretic Peptide Total Protein Albumin Globulin Albumin/Globulin Ratio Triglycerides Cholesterol LDL Cholesterol Direct HDL Cholesterol Amylase Lipase Serum , Qual NEGATIVE Urine Source Urine Color Urine Clarity Urine pH Ur Specific [place] Urine Protein Urine Glucose (UA) Urine Ketones Urine Blood Urine Nitrate Urine Bilirubin Urine Urobilinogen Ur Leukocyte Esterase Urine RBC Urine WBC Ur Epithelial Cells Urine Bacteria 02/12/18 19:35 WBC RBC Hgb Hct MCV MCH MCHC Differential RDW Plt Count MPV Add Manual Diff Band Neutrophils % Neutrophils (Manual) Lymphocytes Monocytes PT INR PTT (Actin FS) Sodium Potassium Chloride Carbon Dioxide Anion Gap BUN Creatinine Est GFR ( Amer) Est GFR (Non-Af Amer) BUN/Creatinine Ratio Glucose Hemoglobin A1c % Whole Bld Lactic Acid Calcium Total Bilirubin AST ALT Alkaline Phosphatase Creatine Kinase Troponin I B-Natriuretic Peptide Total Protein Albumin Globulin Albumin/Globulin Ratio Triglycerides Cholesterol LDL Cholesterol Direct HDL Cholesterol Amylase Lipase Serum , Qual Urine Source CLEAN C Urine Color YELLOW Urine Clarity CLOUDY H Urine pH 5.5 Ur Specific [place] 1.025 Urine Protein 100 H Urine Glucose (UA) NEGATIVE Urine Ketones TRACE Urine Blood LARGE H Urine Nitrate NEGATIVE Urine Bilirubin SMALL H Urine Urobilinogen 0.2 Ur Leukocyte Esterase LARGE H Urine RBC 5-10 H Urine WBC 50-100 H Ur Epithelial Cells FEW Urine Bacteria 4+ H <Ammari,Razan - Last Filed: 02/12/18 22:25> ED Assessment - Assessment General Assessment: sepsis with leukocytosis of 25k and elevated lactic acid 3.3 large uti 2 liters ns given and [id number] PUENTE <Lexy Martínez - Last Filed: 02/12/18 22:25> ED Septic Shock - . Is Septic Shock (SBP<90, OR Lactate>4 mmol\L) present?: No - <6hrs of presentation: Vital Signs: Vital Signs - 8 hr 02/12/18 18:27 Temp 98.2 F HR 111 RR 18 BP 109/52 O2 Sat % 97 <Esvin Bennett - Last Filed: 02/12/18 18:48> - . Is Septic Shock (SBP<90, OR Lactate>4 mmol\L) present?: Yes - <6hrs of presentation: Vital Signs: Vital Signs - 8 hr 02/12/1818 02/12/18 18:27 18:53 20:08 Temp 98.2 F 98.2 F 98.6 F HR 111 115 116 RR 18 20 21 BP 109/52 109/52 111/62 O2 Sat % 97 99 98 Assessment of Lungs: Lung CTA bilateral, No Rales Assessment of Heart: RRR, No Gallops, No Rub EKG Interpretation: NSR, No Ectopy Capillary refill evaluation: Capillary refill > 2 secs, Documented in PE Skin Exam: Warm (SINUS TACYCARDIA 111MILD HYPOTENSION AND HYPONATREMIA 127 WBC 15K LACTATE ELEVATED), Dry, Good Turgur, No Diaphoresis, No Mottling, No Edema, No Erythema ([id number]) - Peripheral pulse evaluation Dorsalis Pedis Peripheral pulse evaluation-quality: +2 (normal), Symmetrical Popliteal Peripheral pulse evaluation-quality: +2 (normal) - Time of Reassessment Time of Reassessment: 21:25 <Lexy Marítnez - Last Filed: 02/12/18 22:25> ED Reassessment (Disposition) - Reassessment Reassessment Condition:: Improved - Diagnosis Diagnosis:: Fever; Abdominal Pain <Esvin Bennett - Last Filed: 02/12/18 18:48> - Diagnosis Diagnosis:: SEPSIS UTI ELEVATED TROP ELEVATED WBC HYPONATREMIA - Patient Disposition Discharge/Transfer:: Acute Care w/in this hosp <Lexy Martínez - Last Filed: 02/12/18 22:25>
[2018-02-12 19:32] LABS: HEMATOCRIT 34.1 % (41.0-60); HEMOGLOBIN 11.5 gm/dL (12-16); LYMPHOCYTE ABSOLUTE 1.5 Th/cmm (1.5-3.0); MEAN CELL VOLUME 85.5 fl (81-100); MEAN CORPUSCULAR HEMOGLOBIN 28.7 pg (27.0-31.0); MEAN CORPUSCULAR HGB CONC 33.6 pg (28.0-36.0); MEAN PLATELET VOLUME 7.7 fl; MONOCYTE ABSOLUTE 1.9 Th/cmm (0.3-1.0); NEUTROPHILE ABSOLUTE 22.5 Th/cmm (1.8-8.0); PLATELET COUNT 429 Th/cmm (150-400); RED BLOOD COUNT 3.99 Mil/cmm (3.80-5.10); RED CELL DISTRIBUTION WIDTH 13.5 % (11.5-20.0)
[2018-02-12 19:40] LABS: WHITE BLOOD COUNT 25.9 Th/cmm (4.8-10.8)
[2018-02-12] MEDS ORDERED: Sodium Chloride 0.9% 1,000 ML IV ONE ×3 (19:44→22:30)
[2018-02-12 19:45] LABS: INR 1.03 (0.5-1.4); PROTHROMBIN TIME (TEST) 10.7 SECONDS (9.5-11.5)
[2018-02-12 19:52] LABS: BAND NEUTROPHILE 7 % (0-10); NEUTROPHILS 79 % (40-80)
[2018-02-12 19:53] LABS: ALB/GLOB RATIO 1.3 (1.0-1.8); ALBUMIN 4.4 gm/dL (3.7-5.3); AMYLASE SERUM 27 U/L (29-103); ANION GAP 18.6 (7.0-16.0); BILIRUBIN,TOTAL 0.5 mg/dL (0.3-1.0); CARBON DIOXIDE 21.6 mEq/L (21.0-31.0); CREATININE - SERUM 1.2 mg/dL (0.6-1.2); GFR AFRICAN-AMERICAN 59.8 ml/min (>90); GFR NON AFRICAN-AMERICAN 49.4 ml/min; LIPASE 51 U/L (11-82); LYMPHOCYTE 11 % (20-50); MONOCYTE 3 % (2-10); POTASSIUM SERUM 4.2 mEq/L (3.5-5.1); TOTAL PROTEIN,SERUM 7.9 gm/dL (6.0-8.3)
[2018-02-12] MEDS ORDERED: Piperacillin Sodium/Tazobact 3.375 gm Vial IV ONE (19:55)
[2018-02-12 20:43] LABS: URINE SOURCE CLEAN C
[2018-02-12 20:50] LABS: URINE BILIRUBIN SMALL (NEGATIVE); URINE CLARITY CLOUDY (CLEAR); URINE COLOR YELLOW; URINE GLUCOSE (UA) NEGATIVE (NEGATIVE); URINE KETONE TRACE mg/dL (NEGATIVE); URINE MICROSCOPIC INDICATED? YES
[2018-02-12 20:51] LABS: URINE BLOOD LARGE (NEGATIVE); URINE LEUKOCYTE ESTERASE LARGE (NEGATIVE); URINE NITRATE NEGATIVE (NEGATIVE); URINE PH 5.5 (4.6 - 8.0); URINE PROTEIN 100 mg/dL (NEGATIVE); URINE UROBILINOGEN 0.2 E.U./dL (0.2 - 1.0)
[2018-02-12 20:54] LABS: URINE BACTERIA 4+ /hpf (NONE SEEN); URINE EPITHELIAL CELLS FEW /lpf (FEW); URINE WBC 50-100 /hpf (0-5)
[2018-02-12 23:19] VITALS: BP 100/45
[2018-02-13] MEDS ORDERED: Piperacillin Sodium/Tazobact 3.375 gm Vial IV ONE ×2 (00:39→04:37)
[2018-02-13 06:08] LABS: % BASOPHILS 0.5 % (0.0-2.0); % EOSINOPHILS 0.1 % (0.0-5.0); % LYMPHOCYTES 6.6 % (20.0-50.0); % MONOCYTES 7.8 % (2.0-10.0); BASOPHILE ABSOLUTE 0.1 Th/cumm (0-0.2); HEMATOCRIT 29.5 % (41.0-60); LYMPHOCYTE ABSOLUTE 1.3 Th/cmm (1.5-3.0); MEAN CELL VOLUME 84.6 fl (81-100); MEAN CORPUSCULAR HEMOGLOBIN 28.5 pg (27.0-31.0); MEAN CORPUSCULAR HGB CONC 33.7 pg (28.0-36.0); MEAN PLATELET VOLUME 7.9 fl; MONOCYTE ABSOLUTE 1.5 Th/cmm (0.3-1.0); NEUTROPHILE ABSOLUTE 16.6 Th/cmm (1.8-8.0); PLATELET COUNT 357 Th/cmm (150-400); RED BLOOD COUNT 3.49 Mil/cmm (3.80-5.10); RED CELL DISTRIBUTION WIDTH 13.4 % (11.5-20.0)
[2018-02-13 06:13] LABS: WHITE BLOOD COUNT 19.5 Th/cmm (4.8-10.8)
[2018-02-13 06:33] LABS: ALB/GLOB RATIO 1.2 (1.0-1.8); ALBUMIN 3.6 gm/dL (3.7-5.3); ANION GAP 14.9 (7.0-16.0); BILIRUBIN,TOTAL 0.4 mg/dL (0.3-1.0); CALCIUM SERUM 9.7 mg/dL (8.6-10.3); CARBON DIOXIDE 23.9 mEq/L (21.0-31.0); CREATININE - SERUM 1.2 mg/dL (0.6-1.2); GFR AFRICAN-AMERICAN 59.8 ml/min (>90); GFR NON AFRICAN-AMERICAN 49.4 ml/min; MAGNESIUM 2.1 mg/dL (1.9-2.7); POTASSIUM SERUM 3.8 mEq/L (3.5-5.1); TOTAL PROTEIN,SERUM 6.5 gm/dL (6.0-8.3)
[2018-02-13 06:54] LABS: BAND NEUTROPHILE 6 % (0-10); LYMPHOCYTE 11 % (20-50); MONOCYTE 10 % (2-10); NEUTROPHILS 73 % (40-80); PLATELET ESTIMATE ADEQUATE (NORMAL)
[2018-02-13] MEDS: INSULIN ASPART SLIDING SCALE 100 UNITS/ML UNIT SUBQ SCH ×4 (08:33→21:39)
[2018-02-13] MEDS ORDERED: Fleet Enema 135 mL RC PRN (08:56)
[2018-02-13] MEDS ORDERED: GLUCAGON HCl 1 MG KIT IM PRN (08:56)
[2018-02-13] MEDS ORDERED: Magnesium Hydroxide (MOM) 30 mL UDC PO PRN (08:56)
[2018-02-13] MEDS ORDERED: Non-Formulary Item 1 EA (Docusate Sodium [Docusate Sodium] 200 MG) PO SCH (09:00)
[2018-02-13] MEDS ORDERED: Non-Formulary Item 1 EA (Metformin Hcl [Glucophage] 1,000 MG) PO SCH (09:00)
[2018-02-13] MEDS: Ferrous Sulfate 325 MG TAB PO SCH ×2 (10:21→17:31)
[2018-02-13] MEDS: Aspirin 81mg Chewable Tab PO SCH (10:21)
[2018-02-13] MEDS: Multivitamin w/ Minerals Tab PO SCH (10:22)
[2018-02-13] MEDS: Lactated Ringer 1,000 ML IV SCH ×2 (10:23→23:52)
[2018-02-13] MEDS ORDERED: INSULIN HUMAN REGULAR 100 UNITS/ML UNIT SUBQ SCH (11:30)
[2018-02-13] MEDS ORDERED: OLANZAPINE 7.5 MG PO SCH (17:00)
[2018-02-14 07:06] LABS: HEMATOCRIT 27.3 % (41.0-60); HEMOGLOBIN 9.1 gm/dL (12-16); MEAN CELL VOLUME 85.5 fl (81-100); MEAN CORPUSCULAR HEMOGLOBIN 28.4 pg (27.0-31.0); MEAN CORPUSCULAR HGB CONC 33.2 pg (28.0-36.0); MEAN PLATELET VOLUME 7.7 fl; PLATELET COUNT 350 Th/cmm (150-400); RED CELL DISTRIBUTION WIDTH 13.5 % (11.5-20.0)
[2018-02-14 07:09] LABS: WHITE BLOOD COUNT 15.3 Th/cmm (4.8-10.8)
[2018-02-14 07:14] LABS: ANION GAP 14.5 (7.0-16.0); BUN - UREA NITROGEN 23 mg/dL (7-25); CALCIUM SERUM 9.5 mg/dL (8.6-10.3); CARBON DIOXIDE 25.9 mEq/L (21.0-31.0); CHLORIDE 101 mEq/L (98-107); GFR AFRICAN-AMERICAN > 60.0 ml/min (>90); GFR NON AFRICAN-AMERICAN > 60.0 ml/min; GLUCOSE 65 mg/dL (70-105); POTASSIUM SERUM 3.4 mEq/L (3.5-5.1); SODIUM SERUM 138 mEq/L (136-145)
[2018-02-14 07:31] LABS: BAND NEUTROPHILE 4 % (0-10); BASOPHIL 0 % (0-3); EOSINOPHIL 0 % (0-5); LYMPHOCYTE 10 % (20-50); MONOCYTE 6 % (2-10); NEUTROPHILS 80 % (40-80); PLATELET ESTIMATE ADEQUATE (NORMAL)
--- NOTE | 2018-02-14 08:41 | Diagnostic Imaging Report ---
Portable chest x-ray HISTORY: Pain The overall heart size is difficult to assess with portable technique and a poor inspiration. No acute focal pulmonary processes no hilar or mediastinal abnormalities. IMPRESSION: 1. No acute pulmonary processes
[2018-02-14] MEDS: Aspirin 81mg Chewable Tab PO SCH (09:29)
[2018-02-14] MEDS: Ferrous Sulfate 325 MG TAB PO SCH ×2 (09:29→16:12)
[2018-02-14] MEDS: INSULIN ASPART SLIDING SCALE 100 UNITS/ML UNIT SUBQ SCH ×4 (09:30→21:37)
[2018-02-14] MEDS: Multivitamin w/ Minerals Tab PO SCH (09:30)
[2018-02-14] MEDS ORDERED: Potassium Chloride 20 mEq ER Tab PO ONE (09:47)
--- NOTE | 2018-02-14 11:00 | History & Physical ---
ADMIT DATE: CHIEF COMPLAINT: Abdominal pain, fever x 2 days. HISTORY OF PRESENT ILLNES: The patient is a 57-year-old lady who resides at [facility] with medical history significant for intellectual disability, type 2 diabetes, hypertension, obesity, who was in her usual state of health until 2 days ago when she started experiencing some tactile fever, chills associated with abdominal pain. The patient is somewhat of a poor historian, but was able to tell me that she has had no cough, congestion or UTI symptomatology in the last few days. She was evaluated at the ED where pertinent findings include a white count of 25.9. Sodium 127, a BUN of 28, a glucose of 391. Lactic acid level 3.1 and a UA consistent with a UTI. She was also noted to be somewhat tachycardic on admission; therefore, she has been admitted to [facility] for management and care. PAST MEDICAL HISTORY: As noted above. Dyslipidemia, PAST SURGICAL HISTORY: Unknown/none listed. FAMILY HISTORY: Likely noncontributory to this admission. SOCIAL HISTORY: No smoking, no alcohol. She lives at group facility. ALLERGIES: NKDA. OUTPATIENT MEDICATIONS: Tylenol 650 q. 4 p.r.n. for fever or pain, aspirin 81 every day, benazepril 2.5 every day, Dulcolax suppository q.96 hours p.r.n. for constipation, vitamin D3 1500 units at bedtime, Depakote 500 mg q.12, docusate sodium 100 mg every day, iron sulfate 325 b.i.d., Fleet enema 135 mL per rectum q.96 hours for severe constipation, gabapentin 100 at bedtime, Lopid 600 mg b.i.d., glipizide 5 mg b.i.d., ibuprofen 400 mg at bedtime, Novolin sliding scale per protocol, milk of magnesia 30 mL q.72 hours p.r.n. for diarrhea, metformin 1000 mg b.i.d., Cytotec 100 mg q.i.d., multivitamins and minerals 1 tab every day, Zyprexa 7.5 q.p.m., triamterene/hydrochlorothiazide 1 tab every day. REVIEW OF SYSTEMS: A full review of systems was not able to be done given patient is being a poor historian. GENERAL: She does admit to fevers for the last couple of days. PULMONARY: No cough. No phlegm production. CARDIAC: She denies any chest pain. GASTROINTESTINAL: She does complain of abdominal pain. Denies any nausea, vomiting, diarrhea, or constipation. GENITOURINARY: She denies any UTI symptomatology and also denies any hematuria. NEUROLOGIC: No changes in vision. PHYSICAL EXAMINATION: VITAL SIGNS: Current temperature is 98.7, T-max is 99.0, pulse 106, BP 85/43 with respirations of 17-18, satting 96% on room air. GENERAL: She is a moderately obese, developmentally delayed female, who is able to answer simple questions and carry conversation. HEENT: Normocephalic, atraumatic. Her pupils are somewhat sluggish, but reactive to light. Extraocular movements are intact. Oropharynx has dry mucous membranes. NECK: There is no JVD or LAD. CARDIOVASCULAR: Regular rate and rhythm without any murmurs. LUNGS: Decreased at the bases due to poor respiratory effort, but clear to auscultation bilaterally. ABDOMEN: Soft, supple. There is currently no tenderness to palpation in the suprapubic area. There is normoactive bowel sounds. LOWER EXTREMITIES: There is no edema. NEUROLOGIC: Grossly intact, but full exam cannot be carried out. LABORATORY DATA: White count 25.9, H and H 11/34, platelet count of 429, bands 7%. INR 1.03. Sodium 127, potassium 4.2, chloride 91, CO2 21, BUN 28, creatinine 1.2 with a glucose level of 391. Lactic acid level 3.13, calcium 11.0. ALT 21, ALT 22, total bilirubin 0.5, alkaline phosphatase 106. Troponins were negative on admission. BNP 55. Albumin 4.4. UA shows large blood, positive for protein, small bilirubin, large leukocytes, 5-10 rbc's, 50-100 wbc's with 4+ bacteria. DIAGNOSTICS: None. ASSESSMENT: 1. Fever/sepsis with associated tachycardia/hypertension and elevated lactic acid level. This is likely secondary to urinary tract infection. 2. Sepsis shock. 3. Elevated lactic acid level. 4. Urinary tract infection. 5. Leukocytosis. 6. History of type 2 diabetes. 7. History of essential hypertension. 8. History of dyslipidemia. 9. History of intellectual disability. PLAN: The patient has been admitted to tele where she has been placed on aggressive IV hydration, namely with lactated Ringer's and her BP meds have been withheld. The patient has been placed on IV antibiotics and she has been pancultured. The patient will be kept on her other medications including her diabetes medications and I will follow up lactic acid and follow up labs will be done. Chest x-ray will also be ordered to rule out any pulmonary source of infection. [facility]# [id number] [facility]OSPITALLise
[2018-02-14] MEDS: Lactated Ringer 1,000 ML IV SCH (16:19)
[2018-02-15 06:51] LABS: ANION GAP 14.4 (7.0-16.0); BUN - UREA NITROGEN 20 mg/dL (7-25); CALCIUM SERUM 9.8 mg/dL (8.6-10.3); CARBON DIOXIDE 25.8 mEq/L (21.0-31.0); CHLORIDE 102 mEq/L (98-107); CREATININE - SERUM 0.8 mg/dL (0.6-1.2); GFR AFRICAN-AMERICAN > 60.0 ml/min (>90); GFR NON AFRICAN-AMERICAN > 60.0 ml/min; GLUCOSE 104 mg/dL (70-105); POTASSIUM SERUM 4.2 mEq/L (3.5-5.1); SODIUM SERUM 138 mEq/L (136-145)
[2018-02-15 07:00] LABS: HEMATOCRIT 28.4 % (41.0-60); HEMOGLOBIN 9.4 gm/dL (12-16); MEAN CELL VOLUME 85.4 fl (81-100); RED BLOOD COUNT 3.33 Mil/cmm (3.80-5.10); WHITE BLOOD COUNT 10.2 Th/cmm (4.8-10.8)
[2018-02-15 07:01] LABS: MEAN CORPUSCULAR HEMOGLOBIN 28.3 pg (27.0-31.0); MEAN CORPUSCULAR HGB CONC 33.1 pg (28.0-36.0); MEAN PLATELET VOLUME 7.9 fl; PLATELET COUNT 360 Th/cmm (150-400); RED CELL DISTRIBUTION WIDTH 13.3 % (11.5-20.0)
[2018-02-15 07:32] LABS: BAND NEUTROPHILE 4 % (0-10); EOSINOPHIL 0 % (0-5); LYMPHOCYTE 10 % (20-50); MONOCYTE 6 % (2-10); NEUTROPHILS 75 % (40-80)
[2018-02-15 07:33] LABS: BASOPHIL 0 % (0-3); METAMYELOCYTE 2 % (0-0); MYELOCYTE 3 %; PLATELET ESTIMATE ADEQUATE (NORMAL)
[2018-02-15] MEDS: INSULIN ASPART SLIDING SCALE 100 UNITS/ML UNIT SUBQ SCH ×4 (07:34→21:46)
[2018-02-15] MEDS: Multivitamin w/ Minerals Tab PO SCH (09:40)
[2018-02-15] MEDS: Ferrous Sulfate 325 MG TAB PO SCH ×2 (09:41→16:35)
[2018-02-15] MEDS: Aspirin 81mg Chewable Tab PO SCH (09:42)
[2018-02-15] MEDS ORDERED: Mag Sulfate 2gm/50mL Premix 2 GM/50 ML BAG IV ONE (10:52)
[2018-02-15] MEDS: Ciprofloxacin 200mg Premix PB 200 MG/100 ML BAG IV SCH ×2 (11:52→21:19)
[2018-02-16 06:19] LABS: HEMATOCRIT 27.7 % (41.0-60); HEMOGLOBIN 9.1 gm/dL (12-16); MEAN CELL VOLUME 85.3 fl (81-100); MEAN CORPUSCULAR HEMOGLOBIN 28.1 pg (27.0-31.0); MEAN CORPUSCULAR HGB CONC 32.9 pg (28.0-36.0); MEAN PLATELET VOLUME 7.8 fl; PLATELET COUNT 403 Th/cmm (150-400); RED BLOOD COUNT 3.25 Mil/cmm (3.80-5.10); RED CELL DISTRIBUTION WIDTH 13.4 % (11.5-20.0); WHITE BLOOD COUNT 8.7 Th/cmm (4.8-10.8)
[2018-02-16] MEDS: INSULIN ASPART SLIDING SCALE 100 UNITS/ML UNIT SUBQ SCH ×4 (06:51→22:02)
[2018-02-16 07:17] LABS: BAND NEUTROPHILE 3 % (0-10); BASOPHIL 0 % (0-3); EOSINOPHIL 0 % (0-5); LYMPHOCYTE 10 % (20-50); METAMYELOCYTE 2 % (0-0); MONOCYTE 5 % (2-10); MYELOCYTE 4 %; NEUTROPHILS 76 % (40-80); PLATELET ESTIMATE ADEQUATE (NORMAL)
[2018-02-16] MEDS: Ciprofloxacin 200mg Premix PB 200 MG/100 ML BAG IV SCH ×2 (09:16→21:06)
[2018-02-16] MEDS: Aspirin 81mg Chewable Tab PO SCH (09:41)
[2018-02-16] MEDS: Multivitamin w/ Minerals Tab PO SCH (09:42)
[2018-02-16] MEDS: Ferrous Sulfate 325 MG TAB PO SCH ×2 (09:43→17:23)
[2018-02-16 18:31] LABS: URINE SOURCE CLEAN C
[2018-02-16 18:39] LABS: URINE BILIRUBIN NEGATIVE (NEGATIVE); URINE BLOOD NEGATIVE (NEGATIVE); URINE CLARITY CLEAR (CLEAR); URINE COLOR YELLOW; URINE GLUCOSE (UA) 100 mg/dL (NEGATIVE); URINE KETONE NEGATIVE (NEGATIVE); URINE NITRATE NEGATIVE (NEGATIVE); URINE PH 7.5 (4.6 - 8.0); URINE PROTEIN NEGATIVE (NEGATIVE); URINE UROBILINOGEN 0.2 E.U./dL (0.2 - 1.0)
[2018-02-16 18:40] LABS: URINE LEUKOCYTE ESTERASE SMALL (NEGATIVE)
[2018-02-16 18:41] LABS: URINE BACTERIA FEW /hpf (NONE SEEN); URINE EPITHELIAL CELLS FEW /lpf (FEW); URINE MICROSCOPIC INDICATED? YES; URINE RBC 0-2 /hpf (0-5)
[2018-02-17] MEDS: INSULIN ASPART SLIDING SCALE 100 UNITS/ML UNIT SUBQ SCH ×4 (06:51→20:46)
[2018-02-17 07:05] LABS: HEMATOCRIT 27.7 % (41.0-60); HEMOGLOBIN 9.4 gm/dL (12-16); MEAN CELL VOLUME 85.5 fl (81-100); MEAN CORPUSCULAR HEMOGLOBIN 28.9 pg (27.0-31.0); MEAN CORPUSCULAR HGB CONC 33.8 pg (28.0-36.0); MEAN PLATELET VOLUME 7.7 fl; PLATELET COUNT 453 Th/cmm (150-400); RED BLOOD COUNT 3.24 Mil/cmm (3.80-5.10); RED CELL DISTRIBUTION WIDTH 13.3 % (11.5-20.0)
[2018-02-17 07:16] LABS: WHITE BLOOD COUNT 11.8 Th/cmm (4.8-10.8)
[2018-02-17 07:20] LABS: BUN - UREA NITROGEN 18 mg/dL (7-25); CALCIUM SERUM 9.8 mg/dL (8.6-10.3); CARBON DIOXIDE 25.3 mEq/L (21.0-31.0); CHLORIDE 105 mEq/L (98-107); CREATININE - SERUM 0.8 mg/dL (0.6-1.2); GFR AFRICAN-AMERICAN > 60.0 ml/min (>90); GFR NON AFRICAN-AMERICAN > 60.0 ml/min; GLUCOSE 100 mg/dL (70-105); MAGNESIUM 1.9 mg/dL (1.9-2.7); POTASSIUM SERUM 4.3 mEq/L (3.5-5.1); SODIUM SERUM 140 mEq/L (136-145)
--- NOTE | 2018-02-17 08:28 | Diagnostic Imaging Report ---
Portable chest x-ray HISTORY: Fever Heart size is difficult to assess due to poor inspiration. No acute focal pulmonary processes. No hilar or mediastinal abnormalities. IMPRESSION: No acute abnormalities
[2018-02-17] MEDS: Ciprofloxacin 200mg Premix PB 200 MG/100 ML BAG IV SCH (08:36)
[2018-02-17] MEDS: Multivitamin w/ Minerals Tab PO SCH (08:37)
[2018-02-17] MEDS: Ferrous Sulfate 325 MG TAB PO SCH ×2 (08:37→16:42)
[2018-02-17] MEDS: Aspirin 81mg Chewable Tab PO SCH (08:37)
[2018-02-17 08:50] LABS: BAND NEUTROPHILE 1 % (0-10); BASOPHIL 0 % (0-3); EOSINOPHIL 0 % (0-5); LYMPHOCYTE 20 % (20-50); METAMYELOCYTE 2 % (0-0); MONOCYTE 4 % (2-10); MYELOCYTE 2 %; NEUTROPHILS 70 % (40-80); PLATELET ESTIMATE ADEQUATE (NORMAL); PROMYELOCYTE 1 %
[2018-02-17] MEDS ORDERED: Meropenem 1 GM in Sodium Chloride 0.9% 100 ML IV SCH (10:00)
--- NOTE | 2018-02-17 11:30 | Consultation ---
Consult Note - Consult Note Service Date: 02/17/18 Referring Physician: Jerome Patel Consult Note: PHYSICIAN Consultation Note: Date of Admission: 02/12/18 Purpose of Consultation: GNR sepsis. Chief Complaint: Patient RO LORENZ was admitted to [facility] with UTI,TACHYCARDIA,SEPSIS. History of Present Illness: 57-year-old female with history of DM 2, HTN, presented to the ED for fever of 2 days associated with nausea and abdominal pains of 2 days. On initial evaluation, his temperature was 98.2 F and WBC Count was 25K. Sepsis w/u was performed and blood and urine culture grew Klebsiella pneumoniae. ID Consult was called for further antibiotics. Meanwhile, she has been receiving meropenem. Past Medical History: DM 2, HTN, Hyperlipidemia. Diagnoses SEPSIS, UNSPECIFIED ORGANISM (02/12/18) TYPE 2 DIABETES MELLITUS WITHOUT COMPLICATIONS (02/12/18) HYPERLIPIDEMIA, UNSPECIFIED (02/12/18) ACIDOSIS (02/12/18) UNSPECIFIED INTELLECTUAL DISABILITIES (02/12/18) ESSENTIAL (PRIMARY) HYPERTENSION (02/12/18) URINARY TRACT INFECTION, SITE NOT SPECIFIED (02/12/18) WEAKNESS (02/12/18) SEVERE SEPSIS WITH SEPTIC SHOCK (02/12/18) Allergies Allergy/AdvReac Type Severity Reaction Status Date / Time No Known Allergies Allergy Verified 02/12/18 18:12 Vital Signs Temp 98.4 F 02/17/18 08:00 Pulse 82 02/17/18 08:00 Resp 18 02/17/18 08:00 BP 98/55 02/17/18 08:00 Pulse Ox 91 02/17/18 08:00 Intake & Output 02/16/18 02/17/18 02/17/18 18:59 06:59 18:59 Intake Total 1100 400 Balance 1100 400 Weight (lbs) 76.657 kg 75.024 kg 75.024 kg Intake: Intake, IV Amount 100 100 Ciprofloxacin 200mg 100 100 Premix PB 200 mg In 100 ml @ 100 mls/hr IV Q12HR [facility] Rx#:[id number] Oral 1000 200 Other 100 Other: # Voids 4 2 # Bowel Movements 0 0 Weight Source Bedscale Bedscale Bedscale Laboratory Results - last 24 hr 02/16/18 02/16/18 02/16/18 11:36 15:48 16:29 WBC RBC Hgb Hct MCV MCH MCHC Differential RDW Plt Count MPV Add Manual Diff Band Neutrophils % Neutrophils (Manual) Lymphocytes Monocytes Eosinophils Basophils Metamyelocytes Myelocytes Promyelocytes Platelet Estimate Sodium Potassium Chloride Carbon Dioxide Anion Gap BUN Creatinine Est GFR ( Amer) Est GFR (Non-Af Amer) BUN/Creatinine Ratio Glucose POC Glucose 272 H 205 H Whole Bld Lactic Acid Calcium Magnesium Urine Source CLEAN C Urine Color YELLOW Urine Clarity CLEAR Urine pH 7.5 Ur Specific [place] 1.010 Urine Protein NEGATIVE Urine Glucose (UA) 100 H Urine Ketones NEGATIVE Urine Blood NEGATIVE Urine Nitrate NEGATIVE Urine Bilirubin NEGATIVE Urine Urobilinogen 0.2 Ur Leukocyte Esterase SMALL H Urine RBC 0-2 Urine WBC 6-10 H Ur Epithelial Cells FEW Urine Bacteria FEW 02/16/18 02/17/18 02/17/18 21:50 05:40 05:40 WBC RBC Hgb Hct MCV MCH MCHC Differential RDW Plt Count MPV Add Manual Diff Band Neutrophils % Neutrophils (Manual) Lymphocytes Monocytes Eosinophils Basophils Metamyelocytes Myelocytes Promyelocytes Platelet Estimate Sodium 140 Potassium 4.3 Chloride 105 Carbon Dioxide 25.3 Anion Gap 14.0 BUN 18 Creatinine 0.8 Est GFR ( Amer) > 60.0 Est GFR (Non-Af Amer) > 60.0 BUN/Creatinine Ratio 22.5 Glucose 100 POC Glucose 145 H Whole Bld Lactic Acid 1.51 Calcium 9.8 Magnesium 1.9 Urine Source Urine Color Urine Clarity Urine pH Ur Specific [place] Urine Protein Urine Glucose (UA) Urine Ketones Urine Blood Urine Nitrate Urine Bilirubin Urine Urobilinogen Ur Leukocyte Esterase Urine RBC Urine WBC Ur Epithelial Cells Urine Bacteria 02/17/18 02/17/18 05:40 06:33 WBC 11.8 H D RBC 3.24 L Hgb 9.4 L Hct 27.7 L MCV 85.5 MCH 28.9 MCHC Differential 33.8 RDW 13.3 Plt Count 453 H MPV 7.7 Add Manual Diff YES Band Neutrophils % 1 Neutrophils (Manual) 70 Lymphocytes 20 Monocytes 4 Eosinophils 0 Basophils 0 Metamyelocytes 2 H Myelocytes 2 Promyelocytes 1 Platelet Estimate ADEQUATE Sodium Potassium Chloride Carbon Dioxide Anion Gap BUN Creatinine Est GFR ( Amer) Est GFR (Non-Af Amer) BUN/Creatinine Ratio Glucose POC Glucose 99 Whole Bld Lactic Acid Calcium Magnesium Urine Source Urine Color Urine Clarity Urine pH Ur Specific [place] Urine Protein Urine Glucose (UA) Urine Ketones Urine Blood Urine Nitrate Urine Bilirubin Urine Urobilinogen Ur Leukocyte Esterase Urine RBC Urine WBC Ur Epithelial Cells Urine Bacteria Home Medication Medication Instructions Recorded Type Cholecalciferol (Vit D3) [Vitamin 1,500 unit PO HS 02/11/17 History D3] Dextrose [Glucose Gel] 15 gm PO PRN PRN 02/11/17 History Divalproex ER [Depakote ER] 500 mg PO Q12H 02/11/17 History Docusate Sodium 200 mg PO DAILY 02/11/17 History Ferrous Sulfate [Iron] 325 mg PO BID 02/11/17 History Fleet Enema 135 ml RC Q96H PRN 02/11/17 History GLUCAGON HCl [Glucagen] 1 mg IM PRN PRN 02/11/17 History Gabapentin 100 mg PO HS 02/11/17 History Gemfibrozil [Lopid*] 600 mg PO BID 02/11/17 History Glipizide [Glucotrol] 5 mg PO BID 02/11/17 History Ibuprofen 400 mg PO HS PRN 02/11/17 History Insulin Human Regular [NovoLIN R*] See Protocol SUBQ ACHS 02/11/17 History Magnesium Hydroxide [Milk of 30 ml PO Q72H PRN 02/11/17 History Magnesia] Metformin HCl [Glucophage] 1,000 mg PO BID 02/11/17 History Misoprostol [Cytotec] 100 mcg PO QID 02/11/17 History Multivitamin w/ Minerals 1 tab PO DAILY 02/11/17 History [Theragran M] Olanzapine [Zyprexa] 7.5 mg PO QPM 02/11/17 History Triamterene/Hydrochlorothiazid 1 cap PO DAILY 02/11/17 History [Dyazide 37.5-25 Capsule] Acetaminophen [Tylenol] 650 mg PO Q4HR PRN #0 tab MDD 02/13/17 Rx 3G/24 HOURS Aspirin [Aspirin Chewable] 81 mg PO DAILY #0 ctb 02/13/17 Rx Benazepril [Lotensin*] 2.5 mg PO DAILY tab 02/13/17 Rx Bisacodyl [Dulcolax 10 Mg Supp] 10 mg RC Q96H PRN sup 02/13/17 Rx Current Medications Generic Name Dose Route Start Last Admin Trade Name Freq PRN Reason Stop Dose Admin Acetaminophen 650 mg 02/13/18 08:56 02/13/18 16:38 Tylenol PO 04/14/18 08:55 650 mg Q4HR PRN Administration Mild Pain or Fever >101 Aspirin 81 mg 02/13/18 09:00 02/17/18 08:37 Aspirin Chewable PO 04/14/18 08:59 81 mg DAILY [facility]ANI Administration Bisacodyl 10 mg 02/13/18 08:56 Dulcolax 10 Mg Supp RC 04/14/18 08:55 Q96H PRN Constipation Cholecalciferol 1,000 iu 02/13/18 21:00 02/16/18 21:10 Vitamin D3 PO 04/14/18 20:59 1,000 iu HS VANI Administration Dextrose 15 gm 02/13/18 08:56 Glutose 40% PO 04/14/18 08:55 PRN PRN hypoglycemia Divalproex Sodium 500 mg 02/13/18 09:00 02/17/18 08:37 Depakote Er PO 04/14/18 08:59 500 mg Q12H VANI Administration Protocol Docusate Sodium 200 mg 02/14/18 09:00 02/17/18 08:37 Colace PO 04/15/18 08:59 200 mg DAILY VANI Administration Ferrous Sulfate 325 mg 02/13/18 09:00 02/17/18 08:37 Iron PO 04/14/18 08:59 325 mg BID VANI Administration Gabapentin 100 mg 02/13/18 21:00 02/16/18 21:11 Neurontin PO 04/14/18 20:59 100 mg HS VANI Administration Gemfibrozil 600 mg 02/13/18 09:00 02/17/18 08:37 Lopid PO 04/14/18 08:59 600 mg BID VANI Administration Glipizide 5 mg 02/13/18 09:00 02/17/18 08:37 Glucotrol PO 04/14/18 08:59 5 mg BID VANI Administration Glucagon 1 mg 02/13/18 08:56 Glucagen IM 04/14/18 08:55 PRN PRN hypoglycemia Meropenem 1 gm/ Sodium 100 mls @ 100 mls/hr 02/17/18 10:00 02/17/18 11:19 Chloride IV 04/18/18 09:59 100 mls/hr Q8H [facility]ANI Administration Ibuprofen 400 mg 02/13/18 08:56 Motrin PO 04/14/18 08:55 HS PRN Pain (Mild) Insulin Aspart 0 units 02/13/18 07:30 02/17/18 06:51 Novolog Insulin Sliding Scale SUBQ 04/14/18 07:29 Not Given ACHS VANI Protocol Lorazepam 1 mg 02/14/18 09:51 02/17/18 11:10 Ativan IVP 04/15/18 09:50 1 mg Q4HR PRN Administration Agitation Protocol Magnesium Hydroxide 30 ml 02/13/18 08:56 Milk Of Magnesia PO 04/14/18 08:55 Q72H PRN Constipation Metformin HCl 1,000 mg 02/13/18 17:00 02/17/18 08:37 Glucophage PO 04/14/18 16:59 1,000 mg BID VANI Administration Misoprostol 100 mcg 02/13/18 09:00 02/17/18 11:10 Cytotec PO 04/14/18 08:59 100 mcg QID VANI Administration Protocol Olanzapine 7.5 mg 02/13/18 17:00 02/16/18 17:23 Zyprexa PO 04/14/18 16:59 7.5 mg QPM VANI Administration Sodium Phosphate 135 ml 02/13/18 08:56 Fleet Enema RC 04/14/18 08:55 Q96H PRN Constipation Review of Systems: A 12 point ROS was reviewed with the pertinent positive and negatives noted in the HPI. Social History Smoking Status Never smoker Family Medical History Not available. Physical Exam: General: Comfortable, not in any acute distress. HEENT: HEAD: NCNT. ORAL CAVITY: moist, pink tongue. EYE: No pallor, no icterus. Pupil PERRLA. EOMI. Neck: Supple, no JVD, no carotid bruit. Cardio: S1 and S2 WNL. Respiratory: Vesicular breath sounds. No crackles. Abdominal: Soft NT ND BS present. Genital/Urinary: deferred Extremities: NCCE Neurological: Alert, awake. Assessment: 1. Klebsiella sepsis. 2. Klebsiella UTI, pyelonephritis. 3. Developemental delay. 4. DM2 5. HTN. Plan: Change levaquin. Repeat blood cultures to see bacteremia has cleared. CT A/P. Thank you, Dr Patel for involving me in taking care of this patient. Signed, Sridhar Leon M.D. [id number]
[2018-02-17] MEDS: Levofloxacin 500mg/100mL 500 MG/100 ML BAG IV SCH (12:52)
--- NOTE | 2018-02-17 19:17 | Consultation ---
DATE OF CONSULTATION: 02/17/2018 PSYCHIATRIC CONSULTATION REQUESTING PHYSICIAN: Jerome Patel M.D. REASON FOR CONSULTATION: Agitation and crying spells. HISTORY OF PRESENT ILLNESS: This patient is a 57-year-old resident of [facility], admitted here for UTI and fever. The patient is currently medically getting stabilized, and a psychiatric consultation is called to address the issue of the constant screaming and yelling. The patient's chart is reviewed. The patient is interviewed. The patient is noted to have multiple medical problems, such as diabetes mellitus type 2, hypertension, and obesity. The patient is also reported to be intellectually challenged. When I tried to evaluate the patient, the patient has been still screaming and yelling and she states that she needs to be on the other side; the patient is not making any sense. Staff are reporting they are finding it difficult to deal with the patient's behavior and the patient has been given 5 mg of Haldol on a p.r.n. basis. Review of the chart also indicated the patient has been getting Haldol and Zyprexa as well as Depakote prior to the hospitalization. PAST PSYCHIATRIC HISTORY: Details are not known. SOCIAL HISTORY: The patient is a resident of the [facility]. SUBSTANCE ABUSE HISTORY: None. MEDICAL HISTORY: The patient is being currently worked up for sepsis. MENTAL STATUS EXAMINATION: The patient is 57 years old, looking her stated age, superficially cooperative. Eye contact is poor. Mood is noted to be irritable. Affect is constricted. Insight and judgment are noted to be still impaired. Impulse control is noted to be poor. Coping skills are also noted to be very poor. The patient has been having difficult time to cope with the stress. The patient is very paranoid at this time and is not making any sense, screaming and yelling, and I am not able to get much of information. Mood swings are noted to be a problem and the patient is also intellectually challenged. PLAN: To adjust the dose on the medication and follow the patient up with supportive therapy. The patient is currently on 7.5 mg of Zyprexa, I am going to be making it as 5 mg twice a day, and follow the patient up with supportive therapy. The patient is currently on 500 mg twice a day of Depakote and I would like to continue the same. The patient is also going to be given lorazepam 1 mg p.o. q. 6 hours p.r.n. for her anxiety and followed up with supportive therapy. Thank you. JOB# [id number]
[2018-02-18 04:44] LABS: HEMATOCRIT 27.9 % (41.0-60); HEMOGLOBIN 9.2 gm/dL (12-16); MEAN CELL VOLUME 85.9 fl (81-100); MEAN CORPUSCULAR HEMOGLOBIN 28.4 pg (27.0-31.0); MEAN PLATELET VOLUME 7.6 fl; PLATELET COUNT 512 Th/cmm (150-400); RED BLOOD COUNT 3.25 Mil/cmm (3.80-5.10); RED CELL DISTRIBUTION WIDTH 13.4 % (11.5-20.0)
[2018-02-18 04:48] LABS: ANION GAP 14.2 (7.0-16.0); BUN - UREA NITROGEN 25 mg/dL (7-25); CALCIUM SERUM 9.7 mg/dL (8.6-10.3); CARBON DIOXIDE 24.7 mEq/L (21.0-31.0); CHLORIDE 105 mEq/L (98-107); CREATININE - SERUM 0.8 mg/dL (0.6-1.2); GFR AFRICAN-AMERICAN > 60.0 ml/min (>90); GFR NON AFRICAN-AMERICAN > 60.0 ml/min; GLUCOSE 59 mg/dL (70-105); POTASSIUM SERUM 3.9 mEq/L (3.5-5.1); SODIUM SERUM 140 mEq/L (136-145)
[2018-02-18 04:49] LABS: WHITE BLOOD COUNT 14.2 Th/cmm (4.8-10.8)
[2018-02-18 05:48] LABS: NEUTROPHILS 57 % (40-80)
[2018-02-18 05:49] LABS: BAND NEUTROPHILE 4 % (0-10); EOSINOPHIL 3 % (0-5); LYMPHOCYTE 28 % (20-50); METAMYELOCYTE 4 % (0-0); MONOCYTE 2 % (2-10); MYELOCYTE 2 %; PLATELET ESTIMATE INCREASED PLATELETS (NORMAL)
[2018-02-18] MEDS: INSULIN ASPART SLIDING SCALE 100 UNITS/ML UNIT SUBQ SCH ×4 (07:30→21:42)
--- NOTE | 2018-02-18 07:37 | Diagnostic Imaging Report ---
Ultrasound abdomen HISTORY: Pyelonephritis, cholecystectomy seen on recent CT examination. COMPARISON: CT abdomen and pelvis on 02/11/2017 Technique: Sonography of the abdomen was performed in multiple planes. FINDINGS: Exam is limited due to bowel gas and body habitus. There is poor visualization of the liver limiting assessment for focal lesions. The visualized liver demonstrates normal echogenicity. The liver estimated measurement is 16.6 cm. The gallbladder was not visualized compatible with surgical changes. The CBD measures 1.0 cm. Evaluation of pancreas is limited due to bowel gas. The right kidney measures 10.9 x 5.7 cm. The left kidney measures 12.4 x 5.9 cm. The renal margins are not well-defined, limiting assessment for focal lesions. No obvious focal lesions or evidence of hydronephrosis. The spleen measures 12 cm. IMPRESSION: Limited exam due to bowel gas and body habitus. No evidence of hydronephrosis. The gallbladder was not visualized compatible with previous cholecystectomy procedure demonstrated on CT examination of the abdomen and pelvis on 02/11/2017. Prominent common bile duct measuring 1 cm possibly related to patient's cholecystectomy procedure.
[2018-02-18] MEDS: Ferrous Sulfate 325 MG TAB PO SCH ×2 (09:58→17:10)
[2018-02-18] MEDS: Aspirin 81mg Chewable Tab PO SCH (09:58)
[2018-02-18] MEDS: Multivitamin w/ Minerals Tab PO SCH (10:01)
[2018-02-18] MEDS: Levofloxacin 500mg/100mL 500 MG/100 ML BAG IV SCH (12:01)
--- NOTE | 2018-02-18 13:23 | Infectious Disease Prog Note ---
Infectious Disease Subjective - Review of Systems Service Date: 02/18/18 Subjective: There is no fever. Infectious Disease Objective - Results Result Diagrams: 02/18/18 04:15 02/18/18 04:15 Recent Labs: Laboratory Last Values WBC 14.2 Th/cmm (4.8-10.8) H D 02/18/18 04:15 RBC 3.25 Mil/cmm (3.80-5.10) L 02/18/18 04:15 Hgb 9.2 gm/dL (12-16) L 02/18/18 04:15 Hct 27.9 % (41.0-60) L 02/18/18 04:15 MCV 85.9 fl (81-100) 02/18/18 04:15 MCH 28.4 pg (27.0-31.0) 02/18/18 04:15 MCHC Differential 33.0 pg (28.0-36.0) 02/18/18 04:15 RDW 13.4 % (11.5-20.0) 02/18/18 04:15 Plt Count 512 Th/cmm (150-400) H 02/18/18 04:15 MPV 7.6 fl 02/18/18 04:15 Add Manual Diff YES 02/18/18 04:15 Neutrophils % 85.0 % (40.0-80.0) H 02/13/18 05:00 Band Neutrophils % 4 % (0-10) 02/18/18 04:15 Lymphocytes % 6.6 % (20.0-50.0) L 02/13/18 05:00 Monocytes % 7.8 % (2.0-10.0) 02/13/18 05:00 Eosinophils % 0.1 % (0.0-5.0) 02/13/18 05:00 Basophils % 0.5 % (0.0-2.0) 02/13/18 05:00 Neutrophils (Manual) 57 % (40-80) 02/18/18 04:15 Lymphocytes 28 % (20-50) 02/18/18 04:15 Monocytes 2 % (2-10) 02/18/18 04:15 Eosinophils 3 % (0-5) 02/18/18 04:15 Basophils 0 % (0-3) 02/17/18 05:40 Metamyelocytes 4 % (0-0) H 02/18/18 04:15 Myelocytes 2 % 02/18/18 04:15 Promyelocytes 1 % 02/17/18 05:40 Platelet Estimate INCREASED PLATELETS (NORMAL) 02/18/18 04:15 Smear Path Review 02/15/18 06:10 PT 10.7 SECONDS (9.5-11.5) 02/12/18 19:20 INR 1.03 (0.5-1.4) 02/12/18 19:20 PTT (Actin FS) 24.1 SECONDS (26.0-38.0) L 02/12/18 19:20 Sodium 140 mEq/L (136-145) 02/18/18 04:15 Potassium 3.9 mEq/L (3.5-5.1) 02/18/18 04:15 Chloride 105 mEq/L (98-107) 02/18/18 04:15 Carbon Dioxide 24.7 mEq/L (21.0-31.0) 02/18/18 04:15 Anion Gap 14.2 (7.0-16.0) 02/18/18 04:15 BUN 25 mg/dL (7-25) 02/18/18 04:15 Creatinine 0.8 mg/dL (0.6-1.2) 02/18/18 04:15 Est GFR ( Amer) > 60.0 ml/min (>90) 02/18/18 04:15 Est GFR (Non-Af Amer) > 60.0 ml/min 02/18/18 04:15 BUN/Creatinine Ratio 31.3 02/18/18 04:15 Glucose 59 mg/dL (70-105) L 02/18/18 04:15 POC Glucose 108 MG/DL (70 - 105) H 02/18/18 10:10 Hemoglobin A1c % 6.0 % (4.0-6.0) 02/12/18 19:20 Whole Bld Lactic Acid 1.51 mmol/L (0.60-1.99) 02/17/18 05:40 Calcium 9.7 mg/dL (8.6-10.3) 02/18/18 04:15 Magnesium 1.9 mg/dL (1.9-2.7) 02/17/18 05:40 Total Bilirubin 0.4 mg/dL (0.3-1.0) 02/13/18 05:00 AST 17 U/L (13-39) 02/13/18 05:00 ALT 17 U/L (7-52) 02/13/18 05:00 Alkaline Phosphatase 76 U/L (34-104) 02/13/18 05:00 Creatine Kinase 58 U/L (30-223) 02/12/18 19:20 Troponin I 0.02 ng/mL (0.01-0.05) 02/12/18 19:20 B-Natriuretic Peptide 55.8 pg/mL (5.0-100.0) 02/12/18 19:20 Total Protein 6.5 gm/dL (6.0-8.3) 02/13/18 05:00 Albumin 3.6 gm/dL (3.7-5.3) L 02/13/18 05:00 Globulin 2.9 gm/dL 02/13/18 05:00 Albumin/Globulin Ratio 1.2 (1.0-1.8) 02/13/18 05:00 Triglycerides 154 mg/dL (<150) H 02/13/18 05:00 Cholesterol 179 mg/dL (<200) 02/13/18 05:00 LDL Cholesterol Direct 102 mg/dL (75-193) 02/13/18 05:00 HDL Cholesterol 34 mg/dL (23-92) 02/13/18 05:00 Amylase 27 U/L (29-103) L 02/12/18 19:20 Lipase 51 U/L (11-82) 02/12/18 19:20 TSH 1.45 uIU/ml (0.34-5.60) 02/13/18 05:00 Serum , Qual NEGATIVE (NEGATIVE) 02/12/18 19:20 Urine Source CLEAN C 02/16/18 15:48 Urine Color YELLOW 02/16/18 15:48 Urine Clarity CLEAR (CLEAR) 02/16/18 15:48 Urine pH 7.5 (4.6 - 8.0) 02/16/18 15:48 Ur Specific [place] 1.010 (1.005-1.030) 02/16/18 15:48 Urine Protein NEGATIVE mg/dL (NEGATIVE) 02/16/18 15:48 Urine Glucose (UA) 100 mg/dL (NEGATIVE) H 02/16/18 15:48 Urine Ketones NEGATIVE mg/dL (NEGATIVE) 02/16/18 15:48 Urine Blood NEGATIVE (NEGATIVE) 02/16/18 15:48 Urine Nitrate NEGATIVE (NEGATIVE) 02/16/18 15:48 Urine Bilirubin NEGATIVE (NEGATIVE) 02/16/18 15:48 Urine Urobilinogen 0.2 E.U./dL (0.2 - 1.0) 02/16/18 15:48 Ur Leukocyte Esterase SMALL (NEGATIVE) H 02/16/18 15:48 Urine RBC 0-2 /hpf (0-5) 02/16/18 15:48 Urine WBC 6-10 /hpf (0-5) H 02/16/18 15:48 Ur Epithelial Cells FEW /lpf (FEW) 02/16/18 15:48 Urine Bacteria FEW /hpf (NONE SEEN) 02/16/18 15:48 - Physical Exam Vitals and I&O: Vital Signs Temp 97.3 F 02/18/18 11:56 Pulse 93 02/18/18 11:56 Resp 20 02/18/18 12:00 BP 98/64 02/18/18 11:56 Pulse Ox 94 02/18/18 11:56 Intake & Output 02/17/18 02/18/18 02/18/18 18:59 06:59 18:59 Intake Total 580 1030 Output Total 1 Balance 580 1029 Weight (lbs) 75.024 kg 74.843 kg Intake: Intake, IV Amount 100 Levofloxacin 500mg/100mL 100 500 mg In 100 ml @ 100 mls/hr IV Q24HR [facility] Rx#: [id number] Oral 480 1000 Other 30 Output: Stool 1 Other: # Voids 3 # Bowel Movements 1 1 Stool Characteristics Soft Weight Source Bedscale Bedscale Active Medications: Current Medications Acetaminophen (Tylenol) 650 mg PO Q4HR PRN PRN Reason: Mild Pain or Fever >101 Stop: 04/14/18 08:55 Last Admin: 02/17/18 12:53 Dose: 650 mg Aspirin (Aspirin Chewable) 81 mg PO DAILY [facility] Stop: 04/14/18 08:59 Last Admin: 02/18/18 09:58 Dose: 81 mg Bisacodyl (Dulcolax 10 Mg Supp) 10 mg RC Q96H PRN PRN Reason: Constipation Stop: 04/14/18 08:55 Cholecalciferol (Vitamin D3) 1,000 iu PO HS [facility]ANI Stop: 04/14/18 20:59 Last Admin: 02/17/18 20:17 Dose: 1,000 iu Dextrose (Glutose 40%) 15 gm PO PRN PRN PRN Reason: hypoglycemia Stop: 04/14/18 08:55 Divalproex Sodium (Depakote Er) 500 mg PO Q12H VANI; Protocol Stop: 04/14/18 08:59 Last Admin: 02/18/18 09:57 Dose: 500 mg Docusate Sodium (Colace) 200 mg PO DAILY [facility] Stop: 04/15/18 08:59 Last Admin: 02/18/18 09:58 Dose: 200 mg Ferrous Sulfate (Iron) 325 mg PO BID [facility] Stop: 04/14/18 08:59 Last Admin: 02/18/18 09:58 Dose: 325 mg Gabapentin (Neurontin) 100 mg PO HS [facility] Stop: 04/14/18 20:59 Last Admin: 02/17/18 20:17 Dose: 100 mg Gemfibrozil (Lopid) 600 mg PO BID [facility] Stop: 04/14/18 08:59 Last Admin: 02/18/18 10:01 Dose: 600 mg Glipizide (Glucotrol) 5 mg PO BID [facility] Stop: 04/14/18 08:59 Last Admin: 02/18/18 10:00 Dose: 5 mg Glucagon (Glucagen) 1 mg IM PRN PRN PRN Reason: hypoglycemia Stop: 04/14/18 08:55 Haloperidol (Haldol) 1 mg PO BID PRN; Protocol PRN Reason: Psychosis Stop: 04/19/18 08:59 Levofloxacin (Levaquin Pb) 500 mg in 100 mls @ 100 mls/hr IV Q24HR [facility] Stop: 04/18/18 11:59 Last Admin: 02/18/18 12:01 Dose: 100 mls/hr Ibuprofen (Motrin) 400 mg PO HS PRN PRN Reason: Pain (Mild) Stop: 04/14/18 08:55 Insulin Aspart (Novolog Insulin Sliding Scale) 0 units SUBQ ACHS VANI; Protocol Stop: 04/14/18 07:29 Last Admin: 02/18/18 11:48 Dose: Not Given Lorazepam (Ativan) 1 mg IVP Q4HR PRN; Protocol PRN Reason: Agitation Stop: 04/15/18 09:50 Last Admin: 02/18/18 12:50 Dose: 1 mg Lorazepam (Ativan) 1 mg PO Q6HR PRN; Protocol PRN Reason: Anxiety Stop: 04/18/18 18:53 Magnesium Hydroxide (Milk Of Magnesia) 30 ml PO Q72H PRN PRN Reason: Constipation Stop: 04/14/18 08:55 Metformin HCl (Glucophage) 1,000 mg PO BID [facility] Stop: 04/14/18 16:59 Last Admin: 02/18/18 10:00 Dose: 1,000 mg Misoprostol (Cytotec) 100 mcg PO QID [facility]; Protocol Stop: 04/14/18 08:59 Last Admin: 02/18/18 12:02 Dose: 100 mcg Olanzapine (Zyprexa) 5 mg PO BID [facility] Stop: 04/19/18 08:59 Last Admin: 02/18/18 09:57 Dose: 5 mg Sodium Phosphate (Fleet Enema) 135 ml RC Q96H PRN PRN Reason: Constipation Stop: 04/14/18 08:55 General: no acute distress, well developed, well nourished HEENT: atraumatic, normocephalic, PERRLA, EOMI Neck: supple, no thyromegaly Cardiovascular: S1S2, regular Lungs: clear to auscultation bilaterally, clear to percussion Abdomen: soft, no tender, no distended, no hepatomegaly Extremities: no cyanosis, no clubbing, no edema Neurological: awake, alert - Procedures Procedures: Procedures Procedure Code Date CHOLECYSTECTOMY 51.22 08/04/01 COMMON DUCT EXPLORATION 51.51 08/04/01 ENDO CHOLANGIOPANCREATOGRAPH 49726 08/04/01 ENDO CHOLANGIOPANCREATOGRAPH 44726 08/04/01 ENDOSCOP INSERTION OF STENT (TUBE) INTO BILE DUCT 51.87 08/04/01 ENDOSCOPIC REMOVAL OF STONE(S) FROM BILIARY TRACT 51.88 08/04/01 ENDOSCOPIC SPHINCTEROTOMY AND PAPILLOTOMY 51.85 08/04/01 ERCP REMOVE DUCT CALCULI 74056 08/04/01 INTRAOPER CHOLANGIOGRAM 87.53 08/04/01 REMOVAL OF GALLBLADDER 55798 08/04/01 REMOVAL OF GALLBLADDER [id number] 08/04/01 Infectious Disease Assmt/Plan - Assessment Assessment: 1. Klebsiella sepsis. 2. Klebsiella UTI, pyelonephritis. 3. Developemental delay. 4. DM2 5. HTN. - Plan Plan: Change levaquin. Follow up repeat blood cultures to see bacteremia has cleared. CT A/P. Nutritional Asmnt/Malnutr-PDOC - Dietary Evaluation Malnutrition Findings (Please click <Entered> for more info): Nutritional Asmnt/Malnutrition Start: 02/13/18 17: 06 Text: Status: Complete Freq: Protocol: Document 02/13/18 17:09 [facility] (Rec[facility] 02[facility]13[facility]18 17[facility]20 [id number] Nutritional Asmnt/Malnutrition Patient General Information Nutritional Screening High Risk Diagnosis UTI, tachycardia, sepsis Pertinent Medical Hx/Surgical Hx HTN, DM, PUD/GERD, dementia, cholecystectomy Subjective Information Pt seen lying in bed at time of visit, awake. Pt stated no appetite, does not want food at this time, not willing to talk. glucose 391 at admission noted. Current Diet Order/ Nutrition Support [facility] Pertinent Medications vit D3, colace, iton, glucotrol, glucagen, novolog, glucophage, piperacillin Pertinent Labs 02/13 Na 135, BUN 30, glucose 174, POC 136-266 02/12 Na 127, cl 91, BUN 28, glucose 391, A1c 6.0 Nutritional Hx/Data Height 1.6 m Height (Calculated Centimeters) 160.0 Current Weight (lbs) 76.657 kg Weight (Calculated Kilograms) 76.7 Weight (Calculated Grams) 69578.1 [place] Body Weight 115 Body Mass Index (BMI) 29.9 Weight Status Overweight GI Symptoms GI Symptoms None Last BM not indicated Difficult in: None Skin Integrity/Comment: intact Estimated Nutritional Goals BEE in Kcals: Using Current wt Calories/Kcals/Kg 25-30 Kcals Calculated 9501-8442 Protein: Using Current wt Protein g/k-1.1 Protein Calculated 77-92 Fluid: ml 1925-2310ml (1ml/kcal) Nutritional Problem 1. Problem Problem altered nutrition related labs Etiology hx of DM Signs/Symptoms: glucose 174-391, POC 136-266 Intervention/Recommendation Comments 1. Continue with [facility] diet as ordered. 2. Monitor PO intake, wt, labs and skin integrity 3. F/U as high risk in 2-3 days, 02/15-8/26 Expected Outcomes/Goals Expected Outcomes/Goals 1. PO intake to meet at least 75% of nutritional needs. 2. Wt stability, skin to remain intact, labs to approach WNL.
--- NOTE | 2018-02-18 13:26 | Diagnostic Imaging Report ---
CT abdomen and pelvis without intravenous contrast Indication: pyelonephritis Comparison: Abdominal ultrasound the 02/17/[address] abdomen and pelvis on 02/11/2015, Technique: Axial images were obtained from the lung bases to the bilateral proximal femurs without IV contrast. Coronal reconstructions were made. total DLP: 589, CTDI11.2 FINDINGS: Hypoventilatory atelectatic changes of the lung bases are noted. Assessment of the solid organs is limited due to lack of contrast. No evidence of focal hepatic lesions. The patient is status post cholecystectomy. Borderline prominent spleen is noted with no focal lesions. No focal pancreatic or adrenal lesions. Mild nonspecific bilateral perinephric inflammatory changes are noted. No evidence of hydronephrosis or renal stones. Moderate stool is noted. No appendicitis. Minimal diverticulosis is noted without evidence of diverticulitis. There is mild urinary bladder wall thickening. No free fluid or free air. Degenerative changes of the spine are noted with spinal scoliosis and abnormal angulation of the femoral bones. Mild anasarca is noted. There is a small fat-containing left inguinal hernia. IMPRESSION: Mild prominence urinary bladder wall. Inflammatory process cannot be excluded Mild nonspecific bilateral perinephric inflammatory changes. No evidence of hydronephrosis or renal stones. Minimal diverticulosis without diverticulitis. Small fat-containing left inguinal. Evidence of prior cholecystectomy. Borderline prominent spleen.
[2018-02-19 05:31] LABS: HEMATOCRIT 28.7 % (41.0-60); HEMOGLOBIN 9.5 gm/dL (12-16); MEAN CELL VOLUME 85.5 fl (81-100); MEAN CORPUSCULAR HEMOGLOBIN 28.2 pg (27.0-31.0); MEAN PLATELET VOLUME 7.5 fl; PLATELET COUNT 568 Th/cmm (150-400); RED BLOOD COUNT 3.35 Mil/cmm (3.80-5.10); RED CELL DISTRIBUTION WIDTH 13.4 % (11.5-20.0)
[2018-02-19 05:39] LABS: ANION GAP 14.1 (7.0-16.0); BUN - UREA NITROGEN 27 mg/dL (7-25); CALCIUM SERUM 9.8 mg/dL (8.6-10.3); CARBON DIOXIDE 22.6 mEq/L (21.0-31.0); CHLORIDE 105 mEq/L (98-107); CREATININE - SERUM 0.8 mg/dL (0.6-1.2); GFR AFRICAN-AMERICAN > 60.0 ml/min (>90); GFR NON AFRICAN-AMERICAN > 60.0 ml/min; GLUCOSE 119 mg/dL (70-105); POTASSIUM SERUM 3.7 mEq/L (3.5-5.1); SODIUM SERUM 138 mEq/L (136-145)
[2018-02-19 05:40] LABS: WHITE BLOOD COUNT 15.1 Th/cmm (4.8-10.8)
[2018-02-19 07:04] LABS: BAND NEUTROPHILE 0 % (0-10); EOSINOPHIL 4 % (0-5); LYMPHOCYTE 22 % (20-50); MONOCYTE 4 % (2-10); NEUTROPHILS 64 % (40-80)
[2018-02-19 07:05] LABS: BASOPHIL 0 % (0-3); METAMYELOCYTE 1 % (0-0); MYELOCYTE 5 %
[2018-02-19 07:06] LABS: PLATELET ESTIMATE INCREASED PLATELETS (NORMAL)
[2018-02-19] MEDS: INSULIN ASPART SLIDING SCALE 100 UNITS/ML UNIT SUBQ SCH ×4 (08:54→21:30)
[2018-02-19] MEDS: Multivitamin w/ Minerals Tab PO SCH (08:55)
[2018-02-19] MEDS: Ferrous Sulfate 325 MG TAB PO SCH ×2 (08:55→16:28)
[2018-02-19] MEDS: Aspirin 81mg Chewable Tab PO SCH (08:55)
[2018-02-19] MEDS: Levofloxacin 500mg/100mL 500 MG/100 ML BAG IV SCH (11:42)
--- NOTE | 2018-02-19 12:13 | Infectious Disease Prog Note ---
Infectious Disease Subjective - Review of Systems Service Date: 02/19/18 Subjective: There is no fever. Infectious Disease Objective - Results Result Diagrams: 02/20/18 05:15 02/20/18 05:15 Recent Labs: Laboratory Last Values WBC 15.1 Th/cmm (4.8-10.8) H 02/19/18 05:00 RBC 3.35 Mil/cmm (3.80-5.10) L 02/19/18 05:00 Hgb 9.5 gm/dL (12-16) L 02/19/18 05:00 Hct 28.7 % (41.0-60) L 02/19/18 05:00 MCV 85.5 fl (81-100) 02/19/18 05:00 MCH 28.2 pg (27.0-31.0) 02/19/18 05:00 MCHC Differential 33.0 pg (28.0-36.0) 02/19/18 05:00 RDW 13.4 % (11.5-20.0) 02/19/18 05:00 Plt Count 568 Th/cmm (150-400) H 02/19/18 05:00 MPV 7.5 fl 02/19/18 05:00 Add Manual Diff YES 02/19/18 05:00 Neutrophils % 85.0 % (40.0-80.0) H 02/13/18 05:00 Band Neutrophils % 0 % (0-10) 02/19/18 05:00 Lymphocytes % 6.6 % (20.0-50.0) L 02/13/18 05:00 Monocytes % 7.8 % (2.0-10.0) 02/13/18 05:00 Eosinophils % 0.1 % (0.0-5.0) 02/13/18 05:00 Basophils % 0.5 % (0.0-2.0) 02/13/18 05:00 Neutrophils (Manual) 64 % (40-80) 02/19/18 05:00 Lymphocytes 22 % (20-50) 02/19/18 05:00 Monocytes 4 % (2-10) 02/19/18 05:00 Eosinophils 4 % (0-5) 02/19/18 05:00 Basophils 0 % (0-3) 02/19/18 05:00 Metamyelocytes 1 % (0-0) H 02/19/18 05:00 Myelocytes 5 % 02/19/18 05:00 Promyelocytes 1 % 02/17/18 05:40 Platelet Estimate INCREASED PLATELETS (NORMAL) 02/19/18 05:00 Smear Path Review 02/15/18 06:10 PT 10.7 SECONDS (9.5-11.5) 02/12/18 19:20 INR 1.03 (0.5-1.4) 02/12/18 19:20 PTT (Actin FS) 24.1 SECONDS (26.0-38.0) L 02/12/18 19:20 Sodium 138 mEq/L (136-145) 02/19/18 05:00 Potassium 3.7 mEq/L (3.5-5.1) 02/19/18 05:00 Chloride 105 mEq/L (98-107) 02/19/18 05:00 Carbon Dioxide 22.6 mEq/L (21.0-31.0) 02/19/18 05:00 Anion Gap 14.1 (7.0-16.0) 02/19/18 05:00 BUN 27 mg/dL (7-25) H 02/19/18 05:00 Creatinine 0.8 mg/dL (0.6-1.2) 02/19/18 05:00 Est GFR ( Amer) > 60.0 ml/min (>90) 02/19/18 05:00 Est GFR (Non-Af Amer) > 60.0 ml/min 02/19/18 05:00 BUN/Creatinine Ratio 33.8 02/19/18 05:00 Glucose 119 mg/dL (70-105) H 02/19/18 05:00 POC Glucose 143 MG/DL (70 - 105) H 02/19/18 11:24 Hemoglobin A1c % 6.0 % (4.0-6.0) 02/12/18 19:20 Whole Bld Lactic Acid 1.51 mmol/L (0.60-1.99) 02/17/18 05:40 Calcium 9.8 mg/dL (8.6-10.3) 02/19/18 05:00 Magnesium 2.0 mg/dL (1.9-2.7) 02/19/18 05:00 Total Bilirubin 0.4 mg/dL (0.3-1.0) 02/13/18 05:00 AST 17 U/L (13-39) 02/13/18 05:00 ALT 17 U/L (7-52) 02/13/18 05:00 Alkaline Phosphatase 76 U/L (34-104) 02/13/18 05:00 Creatine Kinase 58 U/L (30-223) 02/12/18 19:20 Troponin I 0.02 ng/mL (0.01-0.05) 02/12/18 19:20 B-Natriuretic Peptide 55.8 pg/mL (5.0-100.0) 02/12/18 19:20 Total Protein 6.5 gm/dL (6.0-8.3) 02/13/18 05:00 Albumin 3.6 gm/dL (3.7-5.3) L 02/13/18 05:00 Globulin 2.9 gm/dL 02/13/18 05:00 Albumin/Globulin Ratio 1.2 (1.0-1.8) 02/13/18 05:00 Triglycerides 154 mg/dL (<150) H 02/13/18 05:00 Cholesterol 179 mg/dL (<200) 02/13/18 05:00 LDL Cholesterol Direct 102 mg/dL (75-193) 02/13/18 05:00 HDL Cholesterol 34 mg/dL (23-92) 02/13/18 05:00 Amylase 27 U/L (29-103) L 02/12/18 19:20 Lipase 51 U/L (11-82) 02/12/18 19:20 TSH 1.45 uIU/ml (0.34-5.60) 02/13/18 05:00 Serum , Qual NEGATIVE (NEGATIVE) 02/12/18 19:20 Urine Source CLEAN C 02/16/18 15:48 Urine Color YELLOW 02/16/18 15:48 Urine Clarity CLEAR (CLEAR) 02/16/18 15:48 Urine pH 7.5 (4.6 - 8.0) 02/16/18 15:48 Ur Specific [place] 1.010 (1.005-1.030) 02/16/18 15:48 Urine Protein NEGATIVE mg/dL (NEGATIVE) 02/16/18 15:48 Urine Glucose (UA) 100 mg/dL (NEGATIVE) H 02/16/18 15:48 Urine Ketones NEGATIVE mg/dL (NEGATIVE) 02/16/18 15:48 Urine Blood NEGATIVE (NEGATIVE) 02/16/18 15:48 Urine Nitrate NEGATIVE (NEGATIVE) 02/16/18 15:48 Urine Bilirubin NEGATIVE (NEGATIVE) 02/16/18 15:48 Urine Urobilinogen 0.2 E.U./dL (0.2 - 1.0) 02/16/18 15:48 Ur Leukocyte Esterase SMALL (NEGATIVE) H 02/16/18 15:48 Urine RBC 0-2 /hpf (0-5) 02/16/18 15:48 Urine WBC 6-10 /hpf (0-5) H 02/16/18 15:48 Ur Epithelial Cells FEW /lpf (FEW) 02/16/18 15:48 Urine Bacteria FEW /hpf (NONE SEEN) 02/16/18 15:48 - Physical Exam Vitals and I&O: Vital Signs Temp 97.6 F 02/19/18 08:00 Pulse 85 02/19/18 08:00 Resp 18 02/19/18 08:00 BP 98/58 02/19/18 08:00 Pulse Ox 97 02/19/18 08:00 Intake & Output 02/18/18 02/19/18 02/19/18 18:59 06:59 18:59 Intake Total 800 1260 Output Total 1 Balance 800 1259 Weight (lbs) 74.843 kg 74.843 kg Intake: Intake, IV Amount 100 Levofloxacin 500mg/100mL 100 500 mg In 100 ml @ 100 mls/hr IV Q24HR [facility] Rx#: [id number] Oral 700 960 Other 300 Output: Stool 1 Other: # Voids 4 4 # Bowel Movements 1 1 Stool Characteristics Soft Soft Soft Weight Source Bedscale Bedscale Active Medications: Current Medications Acetaminophen (Tylenol) 650 mg PO Q4HR PRN PRN Reason: Mild Pain or Fever >101 Stop: 04/14/18 08:55 Last Admin: 02/18/18 21:32 Dose: 650 mg Aspirin (Aspirin Chewable) 81 mg PO DAILY [facility] Stop: 04/14/18 08:59 Last Admin: 02/19/18 08:55 Dose: 81 mg Bisacodyl (Dulcolax 10 Mg Supp) 10 mg RC Q96H PRN PRN Reason: Constipation Stop: 04/14/18 08:55 Cholecalciferol (Vitamin D3) 1,000 iu PO HS [facility]ANI Stop: 04/14/18 20:59 Last Admin: 02/18/18 21:32 Dose: 1,000 iu Dextrose (Glutose 40%) 15 gm PO PRN PRN PRN Reason: hypoglycemia Stop: 04/14/18 08:55 Divalproex Sodium (Depakote Er) 500 mg PO Q12H VANI; Protocol Stop: 04/14/18 08:59 Last Admin: 02/19/18 08:54 Dose: 500 mg Docusate Sodium (Colace) 200 mg PO DAILY [facility] Stop: 04/15/18 08:59 Last Admin: 02/19/18 08:55 Dose: 200 mg Ferrous Sulfate (Iron) 325 mg PO BID [facility] Stop: 04/14/18 08:59 Last Admin: 02/19/18 08:55 Dose: 325 mg Gabapentin (Neurontin) 100 mg PO HS AVNI Stop: 04/14/18 20:59 Last Admin: 02/18/18 21:33 Dose: 100 mg Gemfibrozil (Lopid) 600 mg PO BID [facility] Stop: 04/14/18 08:59 Last Admin: 02/19/18 08:54 Dose: 600 mg Glipizide (Glucotrol) 5 mg PO BID [facility] Stop: 04/14/18 08:59 Last Admin: 02/19/18 08:54 Dose: 5 mg Glucagon (Glucagen) 1 mg IM PRN PRN PRN Reason: hypoglycemia Stop: 04/14/18 08:55 Haloperidol (Haldol) 1 mg PO BID PRN; Protocol PRN Reason: Psychosis Stop: 04/19/18 08:59 Last Admin: 02/18/18 23:56 Dose: 1 mg Levofloxacin (Levaquin Pb) 500 mg in 100 mls @ 100 mls/hr IV Q24HR [facility]ANI Stop: 04/18/18 11:59 Last Admin: 02/19/18 11:42 Dose: 100 mls/hr Ibuprofen (Motrin) 400 mg PO HS PRN PRN Reason: Pain (Mild) Stop: 04/14/18 08:55 Insulin Aspart (Novolog Insulin Sliding Scale) 0 units SUBQ ACHS VANI; Protocol Stop: 04/14/18 07:29 Last Admin: 02/19/18 11:25 Dose: Not Given Lorazepam (Ativan) 1 mg IVP Q4HR PRN; Protocol PRN Reason: Agitation Stop: 04/15/18 09:50 Last Admin: 02/18/18 23:56 Dose: 1 mg Lorazepam (Ativan) 1 mg PO Q6HR PRN; Protocol PRN Reason: Anxiety Stop: 04/18/18 18:53 Last Admin: 02/18/18 21:31 Dose: 1 mg Magnesium Hydroxide (Milk Of Magnesia) 30 ml PO Q72H PRN PRN Reason: Constipation Stop: 04/14/18 08:55 Metformin HCl (Glucophage) 1,000 mg PO BID VANI Stop: 04/14/18 16:59 Last Admin: 02/19/18 08:54 Dose: 1,000 mg Misoprostol (Cytotec) 100 mcg PO QID VANI; Protocol Stop: 04/14/18 08:59 Last Admin: 02/19/18 08:57 Dose: 100 mcg Olanzapine (Zyprexa) 5 mg PO BID [facility]ANI Stop: 04/19/18 08:59 Last Admin: 02/19/18 08:55 Dose: 5 mg Sodium Phosphate (Fleet Enema) 135 ml RC Q96H PRN PRN Reason: Constipation Stop: 04/14/18 08:55 General: no acute distress, well developed, well nourished HEENT: atraumatic, normocephalic, PERRLA, EOMI Neck: supple, no thyromegaly Cardiovascular: S1S2, regular Lungs: no clear to auscultation bilaterally, no clear to percussion Abdomen: soft, no tender, no distended, no mass, no hepatomegaly Extremities: no cyanosis, no clubbing, no edema Neurological: awake, alert Skin: intact - Procedures Procedures: Procedures Procedure Code Date CHOLECYSTECTOMY 51.22 08/04/01 COMMON DUCT EXPLORATION 51.51 08/04/01 ENDO CHOLANGIOPANCREATOGRAPH 88538 08/04/01 ENDO CHOLANGIOPANCREATOGRAPH 19031 08/04/01 ENDOSCOP INSERTION OF STENT (TUBE) INTO BILE DUCT 51.87 08/04/01 ENDOSCOPIC REMOVAL OF STONE(S) FROM BILIARY TRACT 51.88 08/04/01 ENDOSCOPIC SPHINCTEROTOMY AND PAPILLOTOMY 51.85 08/04/01 ERCP REMOVE DUCT CALCULI 68926 08/04/01 INTRAOPER CHOLANGIOGRAM 87.53 08/04/01 REMOVAL OF GALLBLADDER 43787 08/04/01 REMOVAL OF GALLBLADDER 56391 08/04/01 Infectious Disease Assmt/Plan - Assessment Assessment: 1. Klebsiella sepsis. 2. Klebsiella UTI, pyelonephritis. 3. Developemental delay. 4. DM2 5. HTN. - Plan Plan: may change levaquin IV to po for 14 days on discharge. Nutritional Asmnt/Malnutr-PDOC - Dietary Evaluation Malnutrition Findings (Please click <Entered> for more info): Nutritional Asmnt/Malnutrition Start: 02/13/18 17: 06 Text: Status: Complete Freq: Protocol: Document 02/13/18 17:09 LCHENG (Rec: 02/13/18 17:20 [email or web address] [id number]) Nutritional Asmnt/Malnutrition Patient General Information Nutritional Screening High Risk Diagnosis UTI, tachycardia, sepsis Pertinent Medical Hx/Surgical Hx HTN, DM, PUD/GERD, dementia, cholecystectomy Subjective Information Pt seen lying in bed at time of visit, awake. Pt stated no appetite, does not want food at this time, not willing to talk. glucose 391 at admission noted. Current Diet Order/ Nutrition Support [facility] Pertinent Medications vit D3, colace, iton, glucotrol, glucagen, novolog, glucophage, piperacillin Pertinent Labs 02/13 Na 135, BUN 30, glucose 174, POC 136-266 02/12 Na 127, cl 91, BUN 28, glucose 391, A1c 6.0 Nutritional Hx/Data Height 1.6 m Height (Calculated Centimeters) 160.0 Current Weight (lbs) 76.657 kg Weight (Calculated Kilograms) 76.7 Weight (Calculated Grams) 69622.1 [place] Body Weight 115 Body Mass Index (BMI) 29.9 Weight Status Overweight GI Symptoms GI Symptoms None Last BM not indicated Difficult in: None Skin Integrity/Comment: intact Estimated Nutritional Goals BEE in Kcals: Using Current wt Calories/Kcals/Kg 25-30 Kcals Calculated 5437-9573 Protein: Using Current wt Protein g/k-1.1 Protein Calculated 77-92 Fluid: ml 1925-2310ml (1ml/kcal) Nutritional Problem 1. Problem Problem altered nutrition related labs Etiology hx of DM Signs/Symptoms: glucose 174-391, POC 136-266 Intervention/Recommendation Comments 1. Continue with [facility] diet as ordered. 2. Monitor PO intake, wt, labs and skin integrity 3. F/U as high risk in 2-3 days, 02/15-02/16 Expected Outcomes/Goals Expected Outcomes/Goals 1. PO intake to meet at least 75% of nutritional needs. 2. Wt stability, skin to remain intact, labs to approach WNL.
[2018-02-20 05:37] LABS: HEMATOCRIT 28.2 % (41.0-60); HEMOGLOBIN 9.2 gm/dL (12-16); MEAN CELL VOLUME 86.5 fl (81-100); MEAN CORPUSCULAR HEMOGLOBIN 28.2 pg (27.0-31.0); MEAN CORPUSCULAR HGB CONC 32.7 pg (28.0-36.0); MEAN PLATELET VOLUME 7.4 fl; PLATELET COUNT 607 Th/cmm (150-400); RED BLOOD COUNT 3.26 Mil/cmm (3.80-5.10); RED CELL DISTRIBUTION WIDTH 13.9 % (11.5-20.0)
[2018-02-20 05:48] LABS: WHITE BLOOD COUNT 15.3 Th/cmm (4.8-10.8)
[2018-02-20 06:06] LABS: ANION GAP 13.6 (7.0-16.0); BUN - UREA NITROGEN 31 mg/dL (7-25); CALCIUM SERUM 9.8 mg/dL (8.6-10.3); CARBON DIOXIDE 24.2 mEq/L (21.0-31.0); CHLORIDE 105 mEq/L (98-107); CREATININE - SERUM 0.9 mg/dL (0.6-1.2); GFR AFRICAN-AMERICAN > 60.0 ml/min (>90); GFR NON AFRICAN-AMERICAN > 60.0 ml/min; GLUCOSE 122 mg/dL (70-105); POTASSIUM SERUM 3.8 mEq/L (3.5-5.1); SODIUM SERUM 139 mEq/L (136-145)
[2018-02-20 06:27] LABS: NEUTROPHILS 64 % (40-80)
[2018-02-20 06:28] LABS: BAND NEUTROPHILE 6 % (0-10); EOSINOPHIL 4 % (0-5); LYMPHOCYTE 18 % (20-50); METAMYELOCYTE 4 % (0-0); MONOCYTE 4 % (2-10); PLATELET ESTIMATE INCREASED PLATELETS (NORMAL)
[2018-02-20] MEDS: INSULIN ASPART SLIDING SCALE 100 UNITS/ML UNIT SUBQ SCH ×3 (07:26→16:53)
[2018-02-20] MEDS: Aspirin 81mg Chewable Tab PO SCH (08:58)
[2018-02-20] MEDS: Ferrous Sulfate 325 MG TAB PO SCH (08:59)
[2018-02-20] MEDS: Multivitamin w/ Minerals Tab PO SCH (09:09)
[2018-02-20] MEDS ORDERED: Probiotic Screen MC PRN (09:15)
--- NOTE | 2018-02-20 10:02 | Diagnostic Imaging Report ---
Portable chest x-ray HISTORY: Leukocytosis Patient is rotated. Heart size difficult to assess with portable technique in a poor inspiration. No acute focal pulmonary processes. No pleural fluid evident. IMPRESSION: 1. No acute focal pulmonary processes
[2018-02-20] MEDS: Levofloxacin 500mg/100mL 500 MG/100 ML BAG IV SCH (12:33)
--- NOTE | 2018-02-20 12:42 | Progress Notes ---
DATE: 02/20/2018 SUBJECTIVE: Staff was spoken to. The patient is interviewed. Mood is noted to be irritable. Affect is constricted. The patient is screaming and yelling at the top of her lungs. The patient could not be contained. When the staff are going in there and the patient is calming down to some extent. ASSESSMENT: The patient is still very psychotic and agitated. PLAN: To place the patient on Thorazine 150 mg every 6 hours p.r.n. basis for her acute agitation and psychosis. The patient is going to be closely monitored and followed up. JOB# [id number]
[2018-02-21] MEDS ORDERED: Lactobacillus Rhamnosus GG 15 Billion CFU CAP.SPRINK PO SCH (09:00)
--- NOTE | 2018-03-01 12:05 | Discharge Summary ---
DATE OF DISCHARGE: 02/20/2018 ADMITTING DIAGNOSES: 1. Fever, sepsis. 2. Septic shock. 3. Elevated lactic acid level. 4. Urinary tract infection. 5. Leukocytosis. SECONDARY DIAGNOSES: Include, 1. History of diabetes. 2. History of essential hypertension. 3. History of dyslipidemia. 4. History of intellectual disability. DISCHARGE DIAGNOSES: 1. Fever, sepsis -- resolved. 2. Septic shock -- resolved. 3. Elevated lactic acid level -- improved. 4. Urinary tract infection -- status post IV antibiotics. 5. Leukocytosis--stable. CONSULTANTS: Dr. Sridhar Leon, Infectious Disease; and Dr. Du, Psychiatry. MAJOR PROCEDURES: Abdominal ultrasound done on the 02/17/2018 shows it to be a limited exam due to bowel gas and body habitus. No evidence of hydronephrosis. The gallbladder was visualized compatible with previous cholecystectomy. There is a prominent common bile duct measuring 1 cm, probably related to the patient's cholecystectomy procedure. Abdominal and pelvis CT done on 02/18/2018 shows mild prominent urinary bladder wall. Inflammatory process cannot be excluded. Mild nonspecific bilateral perinephric inflammatory changes. There is no evidence of hydronephrosis or renal stones. Minimal diverticulosis without diverticulitis. Small fat containing left inguinal. Evidence of prior cholecystectomy. Borderline prominent spleen. BRIEF HOSPITAL COURSE: A 57-year-old female who presented from [facility] with abdominal pain and fever x 2 days. Pertinent findings at the ER included a white count of 25,000 with a sodium level of 127, BUN of 28 and a glucose of 391. Her lactic acid level was also noted to be elevated at 3.1 and UA was consistent with a UTI. The patient was admitted to the telemetry ortiz and was placed on aggressive IV hydration, broad-spectrum antibiotics and supportive care. An initial x-ray of the ER showed no acute abnormalities and this was followed on 02/16/2018, again no acute abnormalities were noted on the second x-ray. Blood and urine cultures both came back with Klebsiella pneumoniae and at that time her antibiotics were changed and managed by Infectious Disease. Since admission, the patient's vital signs remained hemodynamically stable and she remained afebrile. As far as her labs, her white count improved to a level of 10.2 on 02/15/2018 and a repeat UA on 02/16/2018 still showed a UTI. Her white count on 02/20/2018 was noted to be 15.3, but again patient was asymptomatic. Her vital signs were within normal limits. MEDICATIONS ON DISCHARGE: Levaquin 500 mg p.o. x 14 days, lorazepam 1 mg p.o. q. 6 p.r.n. for anxiety, milk of magnesia p.r.n., Glucophage 1000 mg b.i.d., Cytotec 100 mcg q.i.d., olanzapine 5 mg b.i.d., Fleet enema q. 96 hours p.r.n. for severe constipation, insulin sliding scale per protocol, Motrin 400 mg p.r.n. for pain, Haldol 1 mg b.i.d. p.r.n. for anxiety, glipizide 5 b.i.d., Lopid 600 mg b.i.d., gabapentin 100 mg, iron sulfate 325 b.i.d., docusate sodium 100 every day, Depakote ER 500 mg q.12h, Tylenol 650 q.4 hours p.r.n. for fever or pain, aspirin 81 mg daily, Dulcolax 10 mg every 96 hours p.r.n. for constipation, vitamin D3 1000 international units p.o. at bedtime. CONDITION ON DISCHARGE: Stable. DISPOSITION: The patient was discharged to [facility] for further care. Per ID's recommendations, pt will be referred to out patient urology for further management and care. [facility]# [id number] BI
== END 2018-02-20 17:46 | DRG 871 ==
LOC: ER 18:08 → TELE 21:45
PROVIDERS: ADMIT Internal Medicine; ATTEND Internal Medicine
DX: A41.59 Other Gram-negative sepsis (principal); R65.21 Severe sepsis with septic shock; E87.1 Hypo-osmolality and hyponatremia; N12 Tubulo-interstitial nephritis, not specified as acute or chronic; E11.9 Type 2 diabetes mellitus without complications; E78.5 Hyperlipidemia, unspecified; I10 Essential (primary) hypertension; F79 Unspecified intellectual disabilities; K21.9 Gastro-esophageal reflux disease without esophagitis; F03.90 Unspecified dementia, unspecified severity, without behavioral disturbance, psychotic disturbance, mood disturbance, and anxiety; E66.9 Obesity, unspecified; B96.1 Klebsiella pneumoniae [K. pneumoniae] as the cause of diseases classified elsewhere; R62.50 Unspecified lack of expected normal physiological development in childhood; Z83.3 Family history of diabetes mellitus; Z82.49 Family history of ischemic heart disease and other diseases of the circulatory system; Z90.49 Acquired absence of other specified parts of digestive tract; Z79.4 Long term (current) use of insulin; Z68.29 Body mass index [BMI] 29.0-29.9, adult
CPT/HCPCS: 36415-UA; 71045-TC; 76700-TC; 80048-TC; 80053-TC; 80061-TC; 81001-TC; 82150-TC; 82550-TC; 82948-90; 83036-90; 83605; 83690-TC; 83735-TC; 83880-TC; 84443-TC; 84484-TC; 84703-TC; 85007-TC; 85025-TC; 85610-TC; 85730-TC; 87086-90; 93005; 94760; 96375; J0744; J1815; J1956; J2060; J2185; J2405; J2543; J3475; J7030; J7121; Q0161; Z7610